=== PATIENT | female | born 1975 | race Caucasian/White ===

== ENCOUNTER 2016-12-09 21:43 | Emergency (ER) | payer SELFPAY | END 2016-12-10 00:08 | disposition home or self-care (01) | LOC: D.ER 21:43 | DX: J45.901 Unspecified asthma with (acute) exacerbation (principal); J18.9 Pneumonia, unspecified organism; R00.0 Tachycardia, unspecified; F17.200 Nicotine dependence, unspecified, uncomplicated ==

== ENCOUNTER 2018-01-01 06:17 | Emergency (ER) | payer SELFPAY ==
[2018-01-01 07:09] LABS: BASOPHILS 0.8 % (0-2); EOSINOPHILS 3.5 % (0-7); HEMATOCRIT 27.6 % (36.0-48.0); HEMOGLOBIN 8.1 g/dL (12-16); IMMATURE GRANULOCYTES 0.2 % (0-5); MCH 20.4 pg (26.0-34.0); MCHC 29.3 g/dL (31.0-37.0); MCV 69.5 fL (80.0-100.0); MEAN PLATELET VOLUME 8.6 fL (7.4-10.4); NEUTROPHILS 79.5 % (40-80); PLATELET COUNT 354 10x3/uL (130-400); RBC 3.97 10x6/uL (4.00-5.40); WBC 9.1 10x3/uL (4.8-10.8)
[2018-01-01 07:25] LABS: ALBUMIN 3.3 g/dL (3.4-5.0); ALKALINE PHOSPHATASE 66 U/L (46-116); ALT (SGPT) 19 U/L (10-68); CALC OSMOLALITY 278 mosm/kg (275-300); CALCIUM 8.3 mg/dL (8.5-10.1); CARBON DIOXIDE 22.2 mmol/L (21.0-32.0); CHLORIDE - SERUM 104 mmol/L (98-107); CREATININE - SERUM 0.7 mg/dL (0.6-1.3); GLUCOSE 90 mg/dL (74-106); POTASSIUM - SERUM 3.8 mmol/L (3.5-5.1); PROTEIN - SERUM 7.6 g/dL (6.4-8.2); SODIUM 140 mmol/L (136-145); UREA NITROGEN 13 mg/dL (7-18); eGFR NON AFRICAN AMERICAN > 90 mL/min (90-120)
[2018-01-01 07:29] LABS: TROPONIN-I < 0.017 ng/mL (0.000-0.060)
[2018-01-04 09:53] VITALS: BMI 23.0
== END 2018-01-01 09:24 | disposition home or self-care (01) ==
LOC: D.ER 06:17
PROVIDERS: Emergency Medicine
DX: J20.9 Acute bronchitis, unspecified (principal); R06.00 Dyspnea, unspecified; D50.9 Iron deficiency anemia, unspecified; F17.200 Nicotine dependence, unspecified, uncomplicated

== ENCOUNTER 2018-01-04 09:02 | Outpatient (CLI) | payer SELFPAY, MEDICAID ==
[~2018-01-04] VITALS: Ht 180.3 cm; Wt 75.0 kg
[2018-01-04 09:53] VITALS: BP 100/70; Ht 180.3 cm; Wt 75.0 kg
== END 2018-01-04 16:30 | disposition home or self-care (01) ==
LOC: D.OPS 09:02
DX: D50.9 Iron deficiency anemia, unspecified (principal)

== ENCOUNTER 2019-01-16 11:04 | Inpatient (IN) | payer MEDICAID ==
[~2019-01-16] VITALS: Ht 180.3 cm; Wt 100.5 kg
--- NOTE | ~2019-01-16 | OP ---
PATIENT NAME: MARY KAY YAP MEDICAL RECORD: [id number] :77 LOCATION:[id number] ADMISSION DATE:01/20/19 SURGEON: OZZIE BRAVO MD DATE OF OPERATION: 01/20/2019 PREOPERATIVE DIAGNOSES: 1. Menorrhagia. 2. Pelvic pain. 3. Anemia. POSTOPERATIVE DIAGNOSES: 1. Menorrhagia. 2. Pelvic pain. 3. Anemia. 4. Suspected adenomyosis. PROCEDURES: Supracervical hysterectomy, right salpingo-oophorectomy, and left distal salpingectomy. SURGEON: Ozzie Bravo ESTIMATED BLOOD LOSS: 400 cc. ANESTHESIA: General endotracheal. INTRAVENOUS FLUIDS: Per anesthesia record. SPECIMENS: Uterus with partial cervix, right fallopian tube and ovary, left fimbriated end to fallopian tube. COMPLICATIONS: None apparent. FINDINGS: 1. Soft friable uterine musculature consistent with adenomyosis. 2. Friable tissue consistent with endometriosis of the pelvis. 3. Grossly normal-appearing ovaries. 4. Left fallopian tube densely adherent to the left ovary. 5. Dense adhesions involving the bladder and the lower uterine segment/cervix. COMPLICATIONS: None apparent. PROCEDURE IN DETAIL: The patient was taken to the operating room, where general anesthesia was achieved without any difficulty. The patient was then prepped and draped in normal sterile fashion in the dorsal supine position. SCDs were on and functioning normally. A Love catheter had been placed and was draining freely. Following prep and drape, a Pfannenstiel skin incision was made and extended downward to the underlying subcutaneous fat to level of the fascia. Fascia was then excised in the midline with a knife and extended bilaterally using the Adkins scissors. Superior and inferior aspects of the fascial incision were grasped with Austyn clamps times 2, tented upwards, and sharply dissected from the underlying rectus muscle using the Adkins scissors and the Bovie cautery. Rectus muscles were then bluntly in the midline and the peritoneum was entered sharply at the superior aspect. The peritoneal incision was then stretched. The uterus was identified and delivered upwards through the incision. A single lap sponge was used to retract the bowel superiorly and a OPERATIVE REPORT [id number] MARY KAY YAP malleable retractor was placed into the incision. The uterus was then tented upwards to the incision and grasped on its cornea with Austyn clamps. Attention was then turned to the bilateral round ligaments. These were then grasped with Austyn clamps times 2. These were cut and suture ligated using #0 Vicryl and the anterior leaf of the broad ligament was then excised downwards across to approximately the three-quarter kun to the midline, stopped only by dense adhesions of the anterior peritoneum to the lower uterine segment/cervix. This bladder flap was developed laterally until uterine vessels were skeletonized. A defect was then made in the posterior leaf of the broad ligament bilaterally and straight Otto clamps were placed across the uteroovarian ligaments and the proximal fallopian tubes times 2. These were clamped and cut, first free tied with #0 Vicryl and then suture ligated. It was noted to be hemostatic on the left. On the right, an area of the infundibulopelvic ligament was found to be friable and bleeding. Attempt was made to oversew it; however, the bleeding persisted. The infundibulopelvic ligament was then skeletonized and grasped very close to the ovary with a curved Otto clamp. The ovary and fallopian tube were then removed. The infundibulopelvic ligament was then free tied using a #0 Vicryl suture and then suture ligated medially with good hemostasis noted. The uterine vessels were then fully skeletonized and ligated using a curved Otto clamp. The uterine vessels were then cut and suture ligated using #0 Vicryl suture. The cardinal ligaments were then grasped with straight Otto clamps, cut, and suture ligated with #0 Vicryl. Attention was then turned to the bladder. Difficulty was had with dissection of the bladder from the cervix. It was felt at this time that continued dissection was likely going to result in a bladder injury. As the patient's last Pap smear was normal, decision was made at that time to proceed with a supracervical hysterectomy. The uterus was then amputated at the level of the cervix above the straight Otto clamps. These clamps were then suture ligated with #0 Vicryl. The endocervical canal was then fulgurated using the Bovie cautery and the cervical stump was oversewn using #0 Vicryl in an interrupted [id number] fashion. Good hemostasis was noted from the cervical stump. Attention was then turned to the left adnexa, where the distal fimbriated end of the tube was tented upwards from the ovary and clamped right on the ovary with a curved Otto clamp. It was felt at this time that further dissection of the tube, which was gently adherent to the ovary, would subject the patient to the risk of bilateral oophorectomy and need for hormone replacement. Just the fimbriated end of the fallopian tube was then excised as it was free and this pedicle was ligated using #0 Vicryl suture times 2. Good hemostasis was noted from all pedicles. FloSeal was placed on all the surgical sites. Counts were correct times 2. The sponge was removed from the abdomen. The fascia was repaired with #0 loop PDS times 1 and the skin was repaired with kerline. The patient tolerated the procedure well. She was transferred to postanesthesia recovery stable without incident. TRANSINT:[id number] Voice Confirmation ID: [id number] DOCUMENT ID: [id number] OZZIE BRAVO MD CC: [id number] DICTATION DATE: 01/22/191758 METALWORKING SPECIALIST: 01/22/192019 DIS IN 01/22/19 [facility] [address] [place] [address]
[2019-01-18] MEDS ORDERED: EPIPEN 2-P0.3 MG/0.3 IM (13:53)
[2019-01-18] MEDS ORDERED: PROZAC20 MG PO (13:54)
[2019-01-18] MEDS ORDERED: ADIPEX-P37.5 M1 PO (13:54)
[2019-01-18] MEDS ORDERED: XOPENEX HFA15 GM INH (13:55)
[2019-01-18] MEDS ORDERED: SUDOGEST30 MG PO (13:56)
[2019-01-18] MEDS ORDERED: ALBUTEROL0.63 MG/3 INH (13:58)
[2019-01-18 14:46] LABS: BASOPHILS 1.2 % (0-2); EOSINOPHILS 6.6 % (0-7); HEMOGLOBIN 12.3 g/dL (12-16); IMMATURE GRANULOCYTES 0.2 % (0-5); LYMPHOCYTES 22.9 % (15-50); MCHC 33.2 g/dL (31.0-37.0); MCV 87.3 fL (80.0-100.0); MEAN PLATELET VOLUME 9.5 fL (7.4-10.4); MONOCYTES 7.9 % (2-11); NEUTROPHILS 61.2 % (40-80); PLATELET COUNT 278 10x3/uL (130-400); RBC 4.24 10x6/uL (4.00-5.40); RDW 22.6 % (11.5-14.5); WBC 5.9 10x3/uL (4.8-10.8)
[2019-01-18 14:53] LABS: APTT 26.1 SECONDS (22.8-39.4); INR 0.99 (0.85-1.17); PROTIME 12.6 SECONDS (11.6-15.0)
[2019-01-18 14:55] LABS: ANION GAP 15.1 mmol/L (8-16); CALCIUM 9.1 mg/dL (8.5-10.1); CARBON DIOXIDE 23.4 mmol/L (21.0-32.0); CREATININE - SERUM 0.9 mg/dL (0.6-1.3); POTASSIUM - SERUM 3.5 mmol/L (3.5-5.1)
[2019-01-20] VITALS (9 sets, daily range): BP systolic 111–127; BP diastolic 63–82; Ht 180.3 cm; Wt 100.5 kg
[2019-01-20 06:19] LABS: HCG URINE NEGATIVE (NEGATIVE)
--- NOTE | 2019-01-20 10:10 | NUR ---
SCOPE PATCH BEHIND RT EAR ON ADMIT TO RR
--- NOTE | 2019-01-20 10:38 | NUR ---
small cup of ice and small apple juice provided per request. Dr Bravo notified for post op orders.
--- NOTE | 2019-01-20 10:45 | NUR ---
received by bed from recovery room with bedside report from Marcelino Montalvo rn. Pt awakens easily when spoken to but is drowsy. rates pain at 0/10 at this time, large abdominal bandage to bikini area noted to be clean and dry, abd soft to touch. moore cath to bedside drain with 200ml clear blue tinted urine noted. scd's bilat per orders and connected to pump. iv to r forearm patent without signs of swelling and pt denies pain/tenderness at site, swab caps in use, LR to pump/infusing per orders. she denies nausea at this time and request apple juice to drink. Family allowed to room. Side rails up x 2 with call light in reach.
--- NOTE | 2019-01-20 11:50 | NUR ---
PT RATES PAIN AT 06/06, DILAUDID HUMAN RESOURCES BENEFITS ASSISTANT STARTED PER MD ORDERS, TORDAL ALSO GIVEN IVP AT THIS TIME. DEMONSTRATES CORRECT USE OF DILAUDID HUMAN RESOURCES BENEFITS ASSISTANT. 50ML CLEAR BLUE URINE NOTED TO COLLECTION CANISTER. SIDE RAILS UP X 2 WITH CALL LIGHT IN REACH AND FAMILY MEMBERS AT BEDSIDE.
--- NOTE | 2019-01-20 12:21 | NUR ---
pain reassessment, pt resting with eyes closed and resp even, no signs of distress. family remains at bedside. side rails up x 2.
--- NOTE | 2019-01-20 12:45 | NUR ---
CALLED TO ROOM, PT STATES THAT SHE FEELS LIKE SHE CAN NOT TAKE DEEP BREATH. HEAD OF BED RAISED AND PILLOWS ADJUSTED, DUE TO 02 SAT OF 92%, O2 VIA NC AT 2L/MIN STARTED. PT ASK ABOUT HER INHALER AND REQUEST DR ALCAZAR BE CALLED FOR ORDERS. PAGED AT THIS TIME.
--- NOTE | 2019-01-20 12:48 | NUR ---
REPORT TO DR ALCAZAR OF PT COMPLAINTS, CURRENT VITAL SIGNS AND 02%, REQUEST MADE FOR ORDER FOR PT TO RESUME LEVALBUTEROL INHALER BID. ORDER RECEIVED.
--- NOTE | 2019-01-20 13:15 | NUR ---
this rn to bedside to let pt and family know that inhaler/updraft had been ordered and resp notified. upon entering room pt is attempting to sit up in bed, having difficulty inhaling, pt wheezing and showing signs of panic/anxiety. She has support from family/friends at bedside who are able to talk her thru and calm her so that she is able to take slow shallow breaths. Non-rebreather mask is applied and turned up to 15l/min, pt remains focused on her friend at bedside and able to attempt and mimick her breathing but begins to panic when she is unable to take a deep breath. O2 sat at 88-90%.
--- NOTE | 2019-01-20 13:20 | NUR ---
RT CALLED WITH REPORT GIVEN OF CURRENT ASSESSMENT AND PT HX OF ASTHMA. REPORTED THAT ORDERS HAD BEEN PLACED FOR INHALER. REQUEST MADE THAT RT COME NOW TO ASSESS PATIENT.
--- NOTE | 2019-01-20 13:26 | NUR ---
NATHAN FROM RT AT BEDSIDE. UPON ENTERING ROOM HE ADJUST O2 LEVEL BY INCREASING IT GREATER THAN 15L/MIN, PT TAKES A DEEP BREATH IMMEDIATLY AFTER THIS IS DONE. INHALER PER RESP. REPORT GIVEN THAT PT ALSO DOES UPDRAFT AT HOME AT LEAST ONCE A DAY. HOME MED REC SHOWN TO RT AND ORDERS PLACED FOR UPDRAFT NOW. O2 88-90% AT THIS TIME, PT BREATH IS NOT SHORT AND SHALLOW AND SHE IS BEGINNING TO RELAX. HER HEART RATE AFTER TREATMENT IS 134-155 AND RESP IS AWARE OF THIS.
--- NOTE | 2019-01-20 13:40 | NUR ---
NON REBREATHER CHANGED TO HIGH FLOW NC PER RT AND VOLUME ADJUST ALSO PER RT. PT IS BREATHING MUCH EASIER ALTHOUGH STILL SHALLOW, NO LONGER HEARING WHEEZING. O2 95% AND PT ABLE TO HAVE BRIEF MOMENTS OF SLEEPING. FAMILY/FRIENDS REMAIN AT BEDSIDE. RESP THERAPY TO MANAGE INHALER/UPDRAFT TREATMENTS.
--- NOTE | 2019-01-20 14:00 | NUR ---
O2 97%, PT TALKING EASILY AT THIS TIME WITH FAMILY AT BEDSIDE. SMALL APPLE JUICE PER REQUEST, DENIES NAUSEA AND RATES PAIN AT 4/10 AT THIS TIME. SHE STATES SHE IS UNSURE ABOUT USING CAR RENTAL AGENT AT THIS TIME DUE TO FEAR OF HAVING ANOTHER PANIC ATTACK DURING SLEEP. ENCOURAGED HER TO TRY AND REST, LIGHTS DIMMED. SIDE RAILS UP X 2 WITH CALL LIGHT IN REACH AND FAMILY PRESENT.
--- NOTE | 2019-01-20 14:30 | NUR ---
PT RESTING AND WATCHING TV. RATES PAIN AT 5/10, O2 96%. DENIES NEEDS OR CONCERNS AT THIS TIME.
--- NOTE | 2019-01-20 15:38 | NUR ---
PROPAGATION MANAGER IN ROOM AND CAME TO DESK TO REPORT THAT PT C/O NOT BREATHING VERY WELL. WALKED IN ROOM AND NOTED VISITOR AT BEDSIDE WHO JUST PUSHED ELECTRIC SIGN WIRER CONTROLLER. PROVIDED EDUCATION THAT ONLY PATIENT SHOULD PUSH CONTROLLER FOR PAIN RELIEF TO PREVENT RESPIRATOR DEPRESSION. NOTED ELEVATED PULSE IN 120'S. PULSE OX 99% AT O2 100% VIA NASAL CANULA SET BY RESPIRATORY THERAPIST. RESP RATE 24, INSPIRATORY WHEEZING NOTED. BP 125/83 P 126. STAYED IN ROOM WITH PATIENT. INITIALLY CONFUSED TO WHY IN HOSPITAL BUT NOW LESS DROWSY, KNOWS WHY SHE IS HOSPITAL, ANSWERS QUESTIONS APPROPRIATELY, USED INCENTIVE SPIROMETER WITH NON PRODUCTIVE COUGH. HOB ELEVATED TO HIGH FOWLERS. SIDE RAILS UP X 2, CALL LIGHT IN REACH. VISITOR AT BEDSIDE.
[2019-01-20 15:42] LABS: BASOPHILS 0.2 % (0-2); EOSINOPHILS 0.1 % (0-7); HEMATOCRIT 37.8 % (36.0-48.0); HEMOGLOBIN 12.4 g/dL (12-16); IMMATURE GRANULOCYTES 0.2 % (0-5); LYMPHOCYTES 6.8 % (15-50); MCH 29.2 pg (26.0-34.0); MCHC 32.8 g/dL (31.0-37.0); MCV 89.2 fL (80.0-100.0); MEAN PLATELET VOLUME 9.4 fL (7.4-10.4); MONOCYTES 2.8 % (2-11); NEUTROPHILS 89.9 % (40-80); PLATELET COUNT 274 10x3/uL (130-400); RBC 4.24 10x6/uL (4.00-5.40); RDW 22.8 % (11.5-14.5); WBC 9.8 10x3/uL (4.8-10.8)
--- NOTE | 2019-01-20 16:00 | NUR ---
DR GREGG ON UNIT AND REPORT GIVEN OF PT HX, ASTHMA/PANIC ATTACK AFTER SURGERY AND OF TREATMENT PER RESP. ALSO REPORTED THAT PT FRIEND/FAMILY MEMBER HAD BEEN OBSERVED PRESSING STEEL BARREL REAMER BUTTON WHENEVER PT IS SLEEPING. NEW ORDERS RECIEVED TO D/C STEEL BARREL REAMER DUE TO THIS AND PT HX, WILL START PO PAIN MEDICATION, PLAN OF CARE GONE OVER WITH PT AND FAMILY. NO QUESTION SOR CONCERNS AT THIS ITME.
[2019-01-20 16:03] LABS: CALC OSMOLALITY 277 mosm/kg (275-300); CALCIUM 8.4 mg/dL (8.5-10.1); CARBON DIOXIDE 24.2 mmol/L (21.0-32.0); CHLORIDE - SERUM 106 mmol/L (98-107); CREATININE - SERUM 0.8 mg/dL (0.6-1.3); GLUCOSE 128 mg/dL (74-106); POTASSIUM - SERUM 4.5 mmol/L (3.5-5.1); SODIUM 139 mmol/L (136-145); UREA NITROGEN 8 mg/dL (7-18); eGFR NON AFRICAN AMERICAN 83 mL/min (90-120)
--- NOTE | 2019-01-20 16:30 | NUR ---
DILAUDID SPORTS ATHLETIC TRAINER DISCONTINUED. PLAN OF CARE GONE OVER WITH PT AND FAMILY AT BEDSIDE. SHE VOICES HER UNDERSTANDING TO ASK FOR PAIN MED WHEN NEEDED. O2 IS 97-100% VIA NC AT 100% PER RT. SHE IS LAUGHING ALONG WITH VISITORS. SIDE RAILS UP X 2 WITH CALL LIGHT IN REACH.
--- NOTE | 2019-01-20 18:16 | NUR ---
PAIN MED PER REQUEST FOR PAIN THAT SHE RATES AT 5/10, PUMP CLEARED WITH TOTAL OF 906 LR INFUSED AND 575 OUTPUT BY CASILLAS. PT TURNED TO HER RIGHT SIDE PER SELF AND GIVES SEVERAL COUGHS. O2 100% WITH NC IN PLACE. DENIES ANY FURTHER NEEDS AT THIS TIME. SIDE RAILS UP X 2 WITH CALL LIGHT IN REACH.
--- NOTE | 2019-01-20 19:13 | NUR ---
C/O PAIN 7/10 PERINEAL AND VAGINAL, SHARP ACHE, AND "THROBBING." TACHYPNEA NOTED WITH O2 SAT 86%. O2 NOTED TO BE ON SIDE OF FACE, REPOSITIONED AND ENCOURAGED TO TAKE SLOW DEEP BREATHS, WITH INCREASE OF O2 SAT TO 90'S. RESP PAGED AT 191 TO REQUEST SCHEDULED UPDRAFT, RETURN CALL REC'D FROM AMY WHO STATES THAT SHE WILL COME TO UNIT TO ADMIN ORDERED UPDRAFT. JASVIR ON UNIT AT 192.
--- NOTE | 2019-01-20 19:30 | NUR ---
SHIFT ASSESSMENT COMPLETED PER FLOWSHEET. STATES PAIN IS DECREASED TO 4-5/10 FOLLOWING RECEIVING TORADOL AND DILAUDID. VSS AT THIS TIME. EXPIRATORY WHEEZES NOTED THROUGHOUT ALL LUNG FEILDS. COUGHING AND DEEP BREATHING DONE WITH ENCOURAGEMENT. INCENTIVE SPIROMETER DONE WITH ENCOURAGEMENT TIMES 5 WITH RN AT BEDSIDE. EDUCATED ON IMPORTANCE OF PERFORMING TURN, COUGH, AND DEEP BREATHING AND USING INCENTIVE SPIROMETER TO PREVENT RESPIRATORY COMPLICATIONS, VERBALIZES UNDERSTANDING. 100 MLS BLUE TINGED URINE EMPTIED FROM CASILLAS. SCD'S ON BLE, EDUCATED ON PURPOSE OF SCD'S. DENIES PASSING FLATUS, NO VAGINAL D/C NOTED. BOWEL SOUNDS PRESENT AND HYPOACTIVE X4. DRSG TO LOWER ABD INTACT WITH NO DRAINAGE NOTED. REPOSITIONED FROM RIGHT SIDE TO BACK, EDUCATED ON SPLINTING WITH RETURN DEMONSTRATION. PLAN OF CARE DISCUSSED WITH PT AND FAMILY MEMBERS, VERBALIZES UNDERSTANDING AND DENIES QUESTIONS. BED IN LOW POSITION WITH UPPER SIDE RAILS RAISED X2. CALL LIGHT AND PHONE WITHIN REACH. LIGHTS OFF PER PT REQUEST. WILL CONTINUE TO MONITOR AND ASSIST PRN.
--- NOTE | 2019-01-20 20:49 | NUR ---
PT SNORING UPON RN ENTERING ROOM. FAMILY MEMBER NOTED TO HAVE HAND ON PT CHEST AND IS CONCERNED THAT "SHE SEEMS TO BE STRUGGLING TO BREATHE AND IT JUST STARTED." RESPIRATIONS 19, REGULAR RATE AND RYMTHM NOTED BY THIS RN. CONTINUES TO HAVE EXPIRATORY WHEEZES THROUGHOUT ALL LUNG FEILDS, NO CHANGE FROM PREVIOUS ASSESSMENT BY THIS RN. PT AROUSES TO VOICE, DENIES DIFFICULTY BREATHING. REFUSES TO TURN AT THIS TIME. INCENTIVE SPIROMETER USED X6 WITH RN. COUGH AND DEEP BREATHING DONE WITH ENCOURAGEMENT, WEAK EFFORT NOTED. FAMILY MEMBER QUESTIONED RN REGARDING NEXT PAIN MEDICATION, REINFORCED TEACHING THAT PAIN MEDICATION WAS PRN, MEANING SHE HAD TO ASK FOR IT, IT IS NOT SCHEDULED. EXPLAINED THAT PT HAS TO ASK FOR MEDICATIONS AND THAT RESPIRATORY AND SEDATION STATUS HAS TO BE ASSESSED PRIOR TO PT RECEIVING NARCOTICS, VERBALIZE UNDERSTANDING. TIMES THAT PT CAN RECEIVE PAIN MEDICATIONS DISCUSSED WITH PT AND FAMILY MEMBERS AND PLACED ON WHITE BOARD. BED IN LOW POSITION WITH UPPER SIDE RAILS RAISED X2. CALL LIGHT AND PHONE WITHIN REACH. WILL CONTINUE TO MONITOR AND ASSIST PRN.
--- NOTE | 2019-01-20 21:57 | NUR ---
FAMILY MEMBER CONCERNS ABOUT PT. C/O ITCHING AROUND TAPE ON ABD. NO EVIDENCE OF RASH AROUND INCISION. PT. SCRATCHING NOSE AND RUBBING ABD. ETC. INFORMED PT. THAT MORE LIKELY MED RELATED. PT. USED INHALER X1. PT. WITH SLURRED SPEECH. Brenda LOZADA RN RETURNS TO ROOM AND ASSUMES CARE OF PT.
--- NOTE | 2019-01-20 21:58 | NUR ---
Jesus PRITCHETT RN AT BEDSIDE. REPORTS THAT VISITOR CAME TO DESK AND REPORTED THAT PT WAS C/O ITCHING AROUND INCISION. NO EVIDENCE OF RASH NOTED. PT REPORTS THAT ITCHING IS GENERALIZED. BOTH THIS RN AND Jesus PRITCHETT RN EXPLAINED THAT ITCHING CAN BE SIDE EFFECT FROM PAIN MEDICATIONS. PT AROUSES TO VOICE, BUT IS GROGGY WITH SLURRED SPEECH AND FALLS ASLEEP MID SENTENCE. VISITOR REQUESTING BENADRYL FOR ITCHING, EDUCATED THAT NO ORDER WAS ON CHART BUT I WOULD CONTACT MD AND NOTIFY OF ASSESSMENT FINDINGS. VERBALIZE UNDERSTANDING. PT REPOSITIONED FROM BACK TO LEFT SIDE WITH PILLOWS PLACED BEHIND BACK AND BETWEEN KNEES FOR COMFORT AND SUPPORT. COUGH AND DEEP BREATHING DONE WITH GOOD EFFORT, REQUIRED ENCOURAGEMENT. INCENTIVE SPIROMETER USED TIMES 6 WITH RN. SCD'S REMAIN ON. BED IN LOW POSITION WITH UPPER SIDE RAILS RAISED X2. CALL LIGHT AND PHONE WITHIN REACH. WILL CONTINUE TO MONITOR AND ASSIST PRN.
--- NOTE | 2019-01-20 22:13 | NUR ---
REPORTED C/O ITCHING AND ASSESSMENT FINDINGS TO DR. GREGG. ORDERS REC'D. DISCUSSED CONCERN REGARDING FAMILY MEMBER/VISITOR AT BEDSIDE THAT CONTINUED TO STIMULATE PT EVEN WHEN SHE WAS TRYING TO REST WELL ASKING OF PAIN MEDICATION FOR PT. DR. GREGG IN AGREEMENT WITH STAFF THAT ONLY ONE PERSON MAY STAY OVER NIGHT IN ROOM WITH PT, SECURITY MAYBE NOTIFIED IF NEEDED .
--- NOTE | 2019-01-20 22:45 | NUR ---
O2 SAT 84-85%, RN TO BEDSIDE. PT SCRATCHING AND O2 UNDER CHIN. NC REPLACED IN NOSE, ENCOURAGED TO TAKE DEEP BREATHS WITH IMMEDIATE INCREASED IN SAT TO 94%. DENIES DIFFICULTY BREATHING. RESP REGULAR AND UNLABORED. BED IN LOW POSITION WITH UPPER SIDE RAILS RAISED X2. CALL LIGHT AND PHONE WITHIN REACH. WILL CONTINUE TO MONITOR AND ASSIST PRN.
--- NOTE | 2019-01-20 23:11 | NUR ---
O2 SAT 83%, RN TO BEDSIDE. PT WATCHING TV AND SCRATCHING NOSE. PULSE OX HALF OFF OF FINGER, NC UNDER CHIN. O2 PLACED BACK IN PT NOSE, PULSE OX REAPPLIED TO FINGER WITH IMMEDIATE RETURN OF O2 SAT TO 94%. RESP 18, REGULAR AND UNLABORED, EXPIRATORY WHEEZES NOTED THROUGHOUT ALL LUNG FEILDS, NO CHANGE FROM PREVIOUS ASSESSMENTS PER THIS RN. SPRITE PROVIDED PER PT REQUEST. DENIES ADDITIONAL NEEDS.
--- NOTE | 2019-01-20 23:17 | NUR ---
VSS. 175 MLS BLUE TINGED URINE EMPTIED FROM CASILLAS. PT CONVERSING WITH RN. PAIN 5/10, SHARP ACHE. DENIES NEED FOR INTERVENTION AT THIS TIME. ICE PACK PLACED PER ORDER AND PT REQUEST. REPOSITIONING SELF IN BED TO BACK. DENIES NEEDS. BED IN LOW POSITION WITH UPPER SIDE RAILS RAISED X2. CALL LIGHT AND PHONE WITHIN REACH. WILL CONTINUE TO MONITOR AND ASSIST PRN.
--- NOTE | 2019-01-20 23:30 | NUR ---
O2 SAT READING 84% WITH PULSE OF 29, RN TO BEDSIDE. PULSE OX TURNED SIDE WAYS ON PT FINGER. ADJUSTED WITH O2 SAT UP TO 94%. REQUEST BREATHING TREATMENT, RT AMY NOTIFIED AND WILL COME TO UNIT TO ADMINISTER PER ORDER.
--- NOTE | 2019-01-20 23:41 | NUR ---
YANELIS, RT TO BEDSIDE.
--- NOTE | 2019-01-21 00:34 | NUR ---
C/O ABD, INCISIONAL, AND VAGINAL PAIN /. CURRENTLY WATCHING TV AND LOOKING AT PHONE. REQUESTS NORCO, GIVEN PER ORDER. REVIEWED PLAN OF CARE. PT CONTINUES TO C/O ITCHING, REPORTS THAT IT HAS IMPROVED BUT IS STILL "KEEPING ME FROM SLEEPING." WILL ADMINISTER ORDERED BENADRYL PER ORDER/PT REQUEST. REPOSITIONED SELF FROM LEFT SIDE TO RIGHT SIDE. PILLOWS PLACED BEHIND BACK FOR COMFORT AND SUPPORT. COUGH AND DEEP BREATHING DONE WITH ENCOURAGEMENT, GOOD EFFORT NOTED. INCENTIVE SPIROMETER USED X7 WITH RN AT BEDSIDE. SCD'S REMAIN ON BLE. DENIES ADDITIONAL NEEDS. BED IN LOW POSITION WITH UPPER SIDE RAILS RAISED X2. CALL LIGHT AND PHONE WITHIN REACH. WILL CONTINUE TO MONITOR AND ASSIST PRN.
--- NOTE | 2019-01-21 00:48 | NUR ---
25 MG IV BENADRYL GIVEN SLOW IVP PER ORDER. NC ON PT CHIN UPON ENTRY TO ROOM, PT STATES THAT HER NOSE IS SORE AND SHE JUST WANTED O2 OFF FOR "A MINUTE." O2 SAT 99%. RESP REGULAR AND UNLABORED, NO S/S DISTRESS, WILL CONTINUE TO MONITOR.
--- NOTE | 2019-01-21 01:19 | NUR ---
O2 SAT 81%. RN TO BEDSIDE, PULSE OX SIDE WAYS ON FINGER, NC LAYING ON BED. PULSE OX READJUSTED WITH WITH READING OF 96%. PAIN REASSESSMENT COMPLETED, 11/06. DENIES NEEDS AT THIS TIME. WILL CONTINUE TO MONITOR.
--- NOTE | 2019-01-21 02:07 | NUR ---
RN TO BEDSIDE. NC AND PULSE OX LAYING ON BED. PT RESTING WITH EYES CLOSED, AROUSES TO VOICE. O2 SAT 86% ON RA. HIGH FLOW NC REAPPLIED WITH 7L O2 WITH IMMEDIATE INCREASE IN O2 SAT TO 99%. O2 DECREASED TO 4 L. C/O PAIN /10 ABD SORENESS, INCISIONAL BURNING/STINGING/THROBBING. REQUEST TORADOL, GIVEN PER ORDER AND PT REQUEST. NEW BAG LR HUNG. ENCOURAGED PO FLUID INTAKE. PT REPORTS THAT SHE ISN'T ITCHING AT THIS TIME. INCENTIVE SPIROMETER DONE X 6 WITH ENCOURAGEMENT. COUGH AND DEEP BREATHING DONE WITH GOOD EFFORT, REFUSES REPOSITIONING AT THIS TIME. BED IN LOW POSITION WITH UPPER SIDE RAILS RAISED X2. CALL LIGHT AND PHONE WITHIN REACH. WILL CONTINUE TO MONITOR AND ASSIST PRN.
--- NOTE | 2019-01-21 02:28 | NUR ---
PULSE OX OFF OF FINGER. NC ON PT FOREHEAD. PT REPORTS THAT SHE FEELS SHE IS HAVING TROUBLE BREATHING, NC REPLACED, O2 SAT 95%. INHALER USED BY PT X2. RESPIRATIONS REGULAR AND UNLABORED. REINFORCED IMPORTANCE OF KEEP PULSE OX MONITOR ON AND NC IN NOSE, VERBALIZES UNDERSTANDING. RN REMAINS AT BEDSIDE.
--- NOTE | 2019-01-21 02:32 | NUR ---
RN REMAINS AT BEDSIDE, PT REPORTS THAT SHE IS NO LONGER HAVING DIFFICULTY BREATHING FOLLOWING USE OF INHALER. ASSISTED TO REPOSITION TO BACK PER PT REQUEST. DENIES ADDITIONAL NEEDS. PT NOTED TO HAVE SLURRED SPEECH AT TIMES DURING RN BEING AT BEDSIDE. WILL CONTINUE TO MONITOR AND ASSIST PRN.
--- NOTE | 2019-01-21 02:51 | NUR ---
O2 SAT 84%. NC ON PT FOREHEAD, REPLACED BACK TO NOSE WITH RETURN OF SAT TO LOW TO MID 90'S. PT AROUSES TO VOICE TO AND TOUCH. PAIN REASSESSMENT COMPLETED, 12/04. BED IN LOW POSITION WITH UPPER SIDE RAILS RAISED X2. CALL LIGHT AND PHONE WITHIN REACH. WILL CONTINUE TO MONITOR.
[2019-01-21 03:42] VITALS: BP 97/54
--- NOTE | 2019-01-21 03:42 | NUR ---
VSS. NC ON PT FOREHEAD, O2 84%. NC PLACED BACK IN NOSE. PT REQUESTING IV PAIN MEDICATIONS, HOWEVER SPEECH IS SLURRED AND PT CONTINUALLY FALLING ASLEEP MID SENTENCE. EXPLAINED TO PT THAT RN FEELS SHE IS STILL TO SEDATED AT THIS POINT TO RECEIVE IV PAIN MEDS, VERBALIZES UNDERSTANDING. CONTINUES TO HAVE EXPIRATORY WHEEZES THROUGHOUT ALL LUNG FEILDS, RUL AND PARI WITH FINE CRACKLES THAT CLEAR WITH COUGH. INCENTIVE SPIROMETER USED X10 WITH RN. COUGH AND DEEP BREATHING DONE WITH ENCOURAGEMENT, GOOD EFFORT NOTED. ENCOURAGED TO CONTINUE TO MOVE AND REPOSITION IN BED. 300 MLS BLUE TINGED URINE EMPTIED FROM CASILLAS, RESEARCH GEOLOGIST BLUE THAN PREVIOUS TIME EMPTIED. SCD'S REMAIN ON BLE. BED IN LOW POSITION WITH UPPER SIDE RAILS RAISED X2. CALL LIGHT AND PHONE WITHIN REACH. WILL CONTINUE TO MONITOR AND ASSIST PRN.
--- NOTE | 2019-01-21 03:58 | NUR ---
AMY, RT AT BEDSIDE.
--- NOTE | 2019-01-21 05:14 | NUR ---
RESTING IN SEMI-FOWLERS POSITION WITH EYES CLOSED. NC LAYING ON CHEST, O2 SAT 94-96%, RESPIRATIONS REGULAR AND UNLABORED, NO S/S OF DISTRESS NOTED. SCD'S ON BLE. BED IN LOW POSITION WITH UPPER SIDE RAILS RAISED X2. CALL LIGHT AND PHONE WTIHIN REACH. WILL CONTINUE TO MONITOR AND ASSIST PRN.
--- NOTE | 2019-01-21 06:03 | NUR ---
C/O PAIN 8/10, CONSTANT HEADACHE, ABD AND INCISIONAL BURNING, STINGING, AND THROBBING. REQUESTS NORCO AT THIS TIME. GIVEN PER ORDER AND REQUEST. O2 LAYING ON PT CHEST, O2 SAT 95% ON RA. REQUEST TO LEAVE O2 OFF AT THIS TIME TO ASSESS O2 SAT ON RA. 200 MLS BLUE TINGED URINE EMPTIED FROM CASILLAS. WILL CONTINUE TO MONITOR AND ASSESS PRN.
[2019-01-21 06:11] LABS: BASOPHILS 0.3 % (0-2); EOSINOPHILS 1.9 % (0-7); HEMATOCRIT 33.6 % (36.0-48.0); HEMOGLOBIN 10.6 g/dL (12-16); IMMATURE GRANULOCYTES 0.2 % (0-5); LYMPHOCYTES 13.3 % (15-50); MCH 28.5 pg (26.0-34.0); MCHC 31.5 g/dL (31.0-37.0); MCV 90.3 fL (80.0-100.0); MEAN PLATELET VOLUME 9.3 fL (7.4-10.4); MONOCYTES 11.9 % (2-11); NEUTROPHILS 72.4 % (40-80); PLATELET COUNT 220 10x3/uL (130-400); RBC 3.72 10x6/uL (4.00-5.40); RDW 22.7 % (11.5-14.5); WBC 8.6 10x3/uL (4.8-10.8)
--- NOTE | 2019-01-21 06:20 | NUR ---
RT AT BEDSIDE, CALLS VIA CL C/O NAUSEA. ZOFRAN GIVEN PER ORDER AND PT REQUEST. EMESIS BAG PROVIDED. ASSISTED PT TO BACK FROM LEFT SIDE AND INTO HIGH FOWLERS POSITION. PT COUGHING AT THIS TIME. DENIES NEEDS. WILL CONTINUE TO MONITOR AND ASSIST PRN.
[2019-01-21 06:46] LABS: CALC OSMOLALITY 275 mosm/kg (275-300); CARBON DIOXIDE 25.8 mmol/L (21.0-32.0); CHLORIDE - SERUM 105 mmol/L (98-107); CREATININE - SERUM 0.7 mg/dL (0.6-1.3); GLUCOSE 102 mg/dL (74-106); SODIUM 139 mmol/L (136-145); UREA NITROGEN 6 mg/dL (7-18); eGFR NON AFRICAN AMERICAN > 90 mL/min (90-120)
[2019-01-21 06:47] LABS: POTASSIUM - SERUM 3.4 mmol/L (3.5-5.1)
[2019-01-21 07:20] VITALS: BP 105/58
--- NOTE | 2019-01-21 07:20 | NUR ---
ASSUMED CARE OF THIS PATIENT. SLEEPING TILTED TO RIGHT SIDE WITH HOB AT 45 DEGREES, AROUSES SLOWLY AND ANSWERS QUESTIONS WITH EYES CLOSED. SAYS HER PAIN IS 7-9/10 WHILE SLEEPING "SHARP". FALLS BACK TO SLEEP AFTER ANSWERING QUESTIONS. VS OBTAINED. IV INFUSING AT 125 ML/HR PER ALARIS PUMP INTO RIGHT WRIST, NO INFILTRATION SIGNS NOTED. CASILLAS DRAINING GREEN TINGED URINE. SCD'S IN PLACE BILATERALLY AND PUMP WORKING. LUNGS CLEAR BILATERALLY WITH OCCASIONAL EXPIRATORY WHEEZING NOTED. O2 ON AT 4 LITERS PER NC, PT PERIODICALLY REMOVED CANNULA, REMINDED TO KEEP IN PLACE. SIDE RAILS UP X 2, CALL LIGHT IN REACH.
--- NOTE | 2019-01-21 08:48 | NUR ---
DROWSY BUT AROUSES EASILY. C/O 07/06 FRONTAL TOTH BETWEEN EYES AT BRIDGE OF NOSE. THROBBING. TORADOL 30 MG GIVEN IVP FOR RELIEF. SAYS INCISIONAL PAIN 04/05. ICE PACK IN PLACE. REPOSITIONED FROM RIGHT SIDE TO LEFT SIDE WITH MINIMAL ASSISTANCE. PILLOWS POSITIONED FOR COMFORT. INCENTIVE SPIROMETER USED PRIOR TO TURNING. CASILLAS DRAINING. IV PATENT. SIDE RAILS UP X2, CALL LIGHT IN REACH. O2 DECREASED TO 2 LITERS PULSE OX AT 95%.
--- NOTE | 2019-01-21 09:10 | NUR ---
DR GREGG IN ROOM WITH PATIENT. ALERT AND ORIENTED. MD REMOVED LOW ABDOMINAL DRESSING. SLIGHT ERRYTHEMA NOTED RIGHT EDGE OF DRESSING POSSIBLY SECONDARY TO THE DRESSING ADHERENCE TO SKIN. [place] INTACT WITHOUT ERRYTHEMA OR DRAINAGE. PER MD PLANS TO DC IV FLUIDS, DC CASILLAS, SHOWER, AMBULATE, REGULAR DIET AND PO PAIN MEDS. PT SAYS SHE PASSED GAS JUST BEFORE HE ARRIVED. VISITOR IN ROOM X 1. MD INFORMED THAT PATIENT O2 WAS DECREASED TO 2 L THIS AM. ORDERS RECEIVED TO DECREASE TO 1 ML AND THEN WEAN PATIENT OFF O2.
--- NOTE | 2019-01-21 09:45 | NUR ---
REMOVED CASILLAS CATHETER, 200 ML OF BLUE TINTED URINE NOTED AND DISPOSED OF. LEFT FOREARM PIV SALINE LOCKED, FLUSHES WELL, NO REDNESS/SWELLING NOTED. PT SITTING UP IN BED VISITING WITH FAMILY MEMBERS, REPORTS SHE FEELS MUCH BETTER TODAY. PT DENIES ANY NEEDS AT THIS TIME.
--- NOTE | 2019-01-21 10:17 | NUR ---
ALERT AND ORIENTED. HAS O2 NC OUT OF NOSE. PULSE OX 96%. O2 DC'S AT THIS TIME. DENIES TOTH. DESIRES TO SIT UP ON EDGE OF BED. MINIMAL ASSISTANCE NEEDED. CURRENTLY SITTING ON BED RECEIVING RESPIRATORY TREATMENT FROM RESP TECH. CALL LIGHT IN REACH. INSTRUCTED NOT TO STAND UP WITHOUT ASSISTANCE. VERBALIZED UNDERSTANDING. FAMILY WENT TO GET PT FOOD "MASHED POTATOES". ICE CREAM GIVEN PER PT REQUEST.
--- NOTE | 2019-01-21 10:37 | NUR ---
RETURNED TO SEMI FOWLERS POSITION. DESIRES TO LEAVE SCD'S OFF FOR NOW. SAYS SHE WILL MOVE HER LEGS AROUND. 1-11/06 INCISIONAL ACHING, DENIES TOTH, DENIES NEEDING ANYTHING FOR PAIN AT THIS TIME. INSTRUCTED TO LET RN KNOW IF NEEDING ANYTHING FOR PAIN. DESIRES TO REST AT THIS TIME. ALERT AND ORIENTED. LOOKS MUCH BETTER. STATES "I DON'T LIKE FEELING SICK."
--- NOTE | 2019-01-21 11:25 | NUR ---
UP IN SHOWER WITH THE HELP OF FAMILY. EXPLAINED TO PATIENT IMPORTANCE OF CALL NURSE FOR ASSISTANCE TO AVOID FALLS INCASE OF DIZZINESS AND OR UNSTABLE GATE. VERBALIZED UNDERSTANDING. DENIES FEELING DIZZINESS. EXPLAINED HOW TO CLEAN INCISION SITE. COMPLETE LINEN CHANGE DONE.
--- NOTE | 2019-01-21 11:40 | NUR ---
FINISHED SHOWER. FAMILY HELPED PT DRESS, THIS RN IN ROOM AND OBSERVE PATIENT AMBULATION BACK TO BED. DENIES NEEDING ANYTHING FOR PAIN. "I FEEL GOOD". ATE FOOD FROM [facility]. HAS NOT VOIDED SINCE CASILLAS CATH WAS DC'D. ENCOURAGED PO HYDRATION. SCANT BLOODY DC NOTED AT INCISION SITE, KATHERINE-PAD PLACED. EXPLAINED TO PATIENT IMPORTANCE OF CHANGING FREQUENTLY. VISITORS IN ROOM. SIDE RAILS UP X 2, CALL LIGHT IN REACH. WILL AMBULATE IN DANIEL WHEN PT READY.
--- NOTE | 2019-01-21 12:15 | NUR ---
AMBULATED IN DANIEL HOLDING ON TO RAILING. SLIGHTLY SHAKY BUT STATES SHE IS LIKE THAT EVEN BEFORE HOSPITALIZATION. WALKED TO END OF DANIEL AND BACK TO ROOM. TOLERATED WELL.
[2019-01-21 12:34] VITALS: BP 112/67
--- NOTE | 2019-01-21 12:37 | NUR ---
RETURNED TO COUCH FROM BATHROOM. UNABLE TO VOID AT THIS TIME. REQUESTED PAIN MEDICATION FOR 5/10 INTERMITTENT "STABBING" PAIN. NORCO 10 MG GIVEN PO. REGULAR DIET SERVED. VISITORS X 2 IN ROOM ASSISTING PATIENT. DENIES NEEDING ANYTHING AT THIS TIME. VS OBTAINED.
--- NOTE | 2019-01-21 13:11 | NUR ---
FEELING DROWSY, ASSISTED BACK TO BED. ENCOURAGED NAP AT THIS TIME. SAYS HER PAIN IS ABOUT 5-6 "I'M OK THOUGH". SIDE RAILS UP X 2, CALL LIGHT IN REACH. LIGHTS TURNED ON LOW. SCD'S BACK ON BILATERALLY, PUMP ON AND WORKING. INSTRUCTED PATIENT TO GET UP WITH ASSISTANCE ONLY. TO CALL RN WHEN NEEDING TO GET UP. VERBALIZED UNDERSTANDING.
--- NOTE | 2019-01-21 14:15 | NUR ---
SLEEPING ON RIGHT SIDE. RESPIRATIONS EVEN AT 20. COLOR PINK. SIDE RAILS UP X 2, CALL LIGHT IN REACH. NO CURRENT VISITORS.
--- NOTE | 2019-01-21 14:50 | NUR ---
RESPIRATORY COMPLETED TREATMENT. PT AROUSED FROM SLEEP EASILY. FAMILY SAYS SHE JUST FELL BACK TO SLEEP, AROUSED PT TO GIVE SCHEDULE TORADOL. PT SAYS SHE HAS 6/10 ACHING INCISIONAL PAIN AND C/O HEADACHE "LIKE IT WAS BEFORE". SAYS SHE STARTED FEELING A LITTLE BIT PRIOR TO GETTING IN BED BUT NOW FEELS "FULL BLOWN". SAYS SHE HAS A HX OF TOTH'S AT HOME AND TAKES LOTS OF MOTRIN. IV TORADOL RELIEVED TOTH EARLIER THIS AM. INSTRUCTED PT THAT SHE IS RECEIVING PO TORADOL NOW. VERBALIZED UNDERSTANDING. WILL REASSESS WITHIN THE HOUR AND CHECK VOIDING STATUS AT THAT TIME. SIDERAILS UP X 2, CALL LIGHT IN REACH. VISITORS X 3 IN ROOM. LIGHTS ON LOW.
--- NOTE | 2019-01-21 15:05 | NUR ---
DR GREGG NOTIFIED OF PT C/O TOTH FOLLOWING NORCO ADMINISTRATION THIS AM AND THIS AFTERNOON. LET MD KNOW THAT TORADOL HELPED THIS MORNING AND WAS GIVEN THIS AFTERNOON SCHEDULED. PLAN TO REASSESS PAIN AND SEE IF TORADOL Q 6 HRS WILL COVER INCISIONAL PAIN AND RELIEVE TOTH. MD CONCURRED WITH PLAN. NO NEW ORDERS AT PRESENT.
--- NOTE | 2019-01-21 15:22 | NUR ---
C/0 HEADACHE AND NAUSEA, DRY HEAVES WITHOUT EMESIS AT THIS TIME. COOL WASHCOTH TO BACK OF NECK. ZOFRAN 4 MG GIVEN IVP. SALINE LOCK FLUSHED BEFORE ZOFRAN, IV PATENT. SALINE LOCK FLUSED AFTER ZOFRAN. HOB ELEVATED. SIDERAILS X 2, CALL LIGHT PLACED IN REACH. VISITORS IN ROOM.
--- NOTE | 2019-01-21 15:36 | NUR ---
SAYS SHE IS STARTING TO FEEL BETTER. TOTH IMPROVED NOW 03/06 VS 07/06 EARLIER. INCISIONAL PAIN 6/10 "OCCASIONAL SHARP PAIN." DENIES NEEDING TO VOID. BLADDER NON-DISTENDED. CLEAN KATHERINE-PAD PLACED OVER LOW INCISION SITE. WILL REASSESS NEED TO VOID IN 30 MINS OR WHEN PT FEELING BETTER.
--- NOTE | 2019-01-21 16:02 | NUR ---
REQUESTED ICE CHIPS FOR DRY MOUTH. DENIES NAUSEA. DENIES TOTH 0/10 NOW. SAYS SHE IS FEELING BETTER.
--- NOTE | 2019-01-21 16:20 | NUR ---
UP TO BATHROOM. VOIDED 200 ML LIGHT GREEN URINE. AMBULATED IN DANIEL PAST NURSES STATION AND BACK TO ROOM. TOLERATED WELL. HAD EPISODE OF NAUSEA PRIOR TO WALKING BUT DENIES NOW. DENIES TOTH. INCISIONAL PAIN 5/10 BUT SAYS SHE IS OK. RETURNED TO BED AFTER BRUSHING TEETH. VISITORS WENT TO GET DINNER. REMINDED PATIENT NOT TO GET UP WITHOUT ASSISTANCE. VERBALIZED UNDERSTANDING. CALL LIGHT IN REACH. SIDERAILS UP X 2.
[2019-01-21 16:26] VITALS: BP 103/69
--- NOTE | 2019-01-21 16:30 | NUR ---
SITTING UP IN BED WATCHING TV. INCENTIVE SPIROMETER USED X 3. ENCOURAGED TO USE HOURLY AND TO USE AT HOME AFTER DISCHARGE. VERBALIZED UNDERSTANDING.
--- NOTE | 2019-01-21 17:27 | NUR ---
PT C/O ONSET OF FRONTAL TOTH 07/06 [address]TA[address] GREGG TO LET HIM KNOW THAT TOTH AND NAUSEA RESOLVED EARLIER BUT HAS RETURNED. REVIEWED MEDICATION ADMINISTRATION INCLUDING LAST DOSE OF NORCO, TORADOL AND ZOFRAN. ORDERS RECEIVED. HANDLE BENDER NOTIFIED OF NEED FOR MEDICATION.
--- NOTE | 2019-01-21 17:49 | NUR ---
HAVING DRY HEAVES WITH SCANT EMESIS NOTED, SITE SURVEYOR CURRENTLY OBTAINING PAIN MEDICATION FROM PHARMACY.
--- NOTE | 2019-01-21 18:55 | NUR ---
STILL WAITING ON BALLISTIC TECHNICIAN TO BRING MED. LAYING ON RIGHT SIDE WITH EYES CLOSED. STILL C/O FRONTAL TOTH BETWEEN EYES, + SENSITIVITY TO LIGHT. NAUSEA. NO CURRENT EMESIS. LIGHTS ON LOW. VS OBTAINED. NOTED PULSE OX 90-93 WHEN DOZING OFF BUT INCREASES TO 94-96 WHEN AROUSED AND TALKING. O2 NC PLACED AND O2 STARTED AT 2 LITERS. PULSE OX LEFT IN PLACE. SPOUSE IN ROOM. SIDE RAILS UP X 2, CALL LIGHT IN REACH.
--- NOTE | 2019-01-21 19:00 | NUR ---
REPORT GIVEN TO PM SHIFT. BINDER AND WRAPPER PACKER CONTACTED TO SEE IF SHE WILL BE BRING PT MED. SAYS SHE WILL BRING ULISES.
--- NOTE | 2019-01-21 20:10 | NUR ---
asst pt to bathroom. pt voided 400ml of blue urine with small clot in urine. tolerated well.
[2019-01-21 20:15] VITALS: BP 117/71
--- NOTE | 2019-01-21 20:15 | NUR ---
MAXALT GIVEN PER ORDER. PT EDUCATED ON MEDICATION USE, FREQUENCY, AND SIDE EFFECTS. VERBALIZES UNDERSTANDING AND DENIES QUESTIONS. VSS. WILL CONTINUE TO MONITOR AND ASSIST PRN.
--- NOTE | 2019-01-21 21:00 | NUR ---
asst to bathroom and back to bed. pt voided 400ml or urine blue in color. pt ret to bed with hob sl elevated. tolerated well.
--- NOTE | 2019-01-21 21:30 | NUR ---
SHIFT ASSESSMENT COMPLETED PER FLOWSHEET. PAIN 5/10 INCISIONAL BURNING AND STINGING AND ABD "SORENESS." REPORTS IMPROVEMENT IN PAIN SINCE RECEIVING TORADOL. REPORTS THAT SHE NO LONGER HAS A HEADACHE. EXPIRATORY WHEEZES PRESENT THROUGHOUT ALL LUNG HOGAN, IMPROVEMENT NOTED FROM WHEN THIS RN PREVIOUSLY CARED FOR THIS PT. PT REPORTS PRODUCTIVE COUGH WITH CLEAR SPUTUM. ENCOURAGED PT TO CONTINUE TO USE INCENTIVE SPIROMETER, AMBULATE, TURN, COUGH, AND DEEP BREATH, VERBALIZES UNDERSTANDING. REPORTS THAT SHE IS VOIDING WITHOUT DIFFICULTY AND PASSING FLATUS. LOW TRANSVERSE INCISION NOTED, WELL APPROXIMATED WITH [place]OOK[place] INTACT, NO DRAINAGE NOTED. INSTRUCTED ON INCISIONAL CARE, PERIPAD PLACED OVER INCISION BETWEEN ABD FOLD. ENCOURAGED PT TO EMPTY BLADDER FREQUENTLY, VERBALIZES UNDERSTANDING. EDUCATED ON S/S OF INFECTION TO REPORT AND MEDICATIONS, VERBALIZES UNDERSTANDING AND DENIES QUESTIONS. BED IN LOW POSITION WITH UPPER SIDE RAILS RAISED X2. CALL LIGHT AND PHONE WITHIN REACH. WILL CONTINUE TO MONITOR AND ASSIST PRN.
--- NOTE | 2019-01-21 22:02 | NUR ---
PAIN 8/10 ABD AND INCISIONAL ACHING. REQUESTS NORCO, GIVEN PER ORDER AND REQUEST. PT APPREHENSIVE ABOUT TAKING NORCO, STATES "I'M AFRAID IT IS THE REASON THAT I HAVE BEEN GETTING HEADACHE, BUT I JUST DON'T KNOW." DENIES HEADACHE AT THIS TIME. EDUCATED PT ON MEDICATION AND INSTRUCTED THAT SHE IF DEVELOPS HEADACHE FOLLOWING TAKING MEDICATION RN WOULD LIST MED ALLERGY AND CONTACT . VERBALIZES UNDERSTANDING AND AGREEMENT.
--- NOTE | 2019-01-21 22:17 | NUR ---
AMBULATING IN DANIEL WITH SPOUSE, STEADY GAIT NOTED. REQUEST UPDRAFT. RT YANELIS NOTIFIED AND WILL COME TO UNIT TO ADMINISTER.
--- NOTE | 2019-01-21 22:28 | NUR ---
BACK TO ROOM FROM AMBULATING IN DANIEL. 400 MLS LIGHT BLUE TINGED URINE EMPTIED FROM HAT. SCD'S ON BLE. DENIES NEEDS. PAIN 4/10, DENIES NEED FOR INTERVENTION. BED IN LOW POSITION WITH UPPER SIDE RAILS RAISED X2. CALL LIGHT, TABLE, AND PHONE WITHIN REACH. WILL CONTINUE TO MONITOR AND ASSIST PRN.
--- NOTE | 2019-01-21 22:30 | NUR ---
YANELIS, RT ON UNIT FOR REQUESTED UPDRAFT.
--- NOTE | 2019-01-21 22:40 | NUR ---
PAIN REASSESSMENT COMPLETED, PAIN 4. DENIES HEADACHE AND NEEDS. CONVERSING WITH SPOUSE AND STATES THAT SHE IS GOING TO "TRY TO GO TO SLEEP AND REST." WILL CONTINUE TO MONITOR.
[2019-01-22 00:37] VITALS: BP 108/71
--- NOTE | 2019-01-22 00:40 | NUR ---
OPENS EYES WITH RN ENTRY TO ROOM. PAIN 3/10 INCISIONAL BURNING, STINGING, AND ABD SORENESS. DENIES NEED FOR INTERVENTION. VSS. REMAINS ON RA. SPRITE PROVIDED PER REQUEST. SCD'S ON BLE. DENIES ADDITIONAL NEEDS. BED IN LOW POSITION WITH UPPER SIDE RAILS RAISED X2. CALL LIGHT AND PHONE WITHIN REACH. WILL CONTINUE TO MONITOR AND ASSIST PRN.
--- NOTE | 2019-01-22 02:38 | NUR ---
SCHEDULED TORADOL GIVEN PER EMAR, PAIN 02/03. REPORTS THAT SHE HASN'T VOIDED SINCE GOING TO BED BEFORE AMBULATING IN HALLWAY. ENCOURAGED TO VOID, UP TO BATHROOM, VOIDED 500 MLS LIGHT BLUE TINGED URINE IN HAT. NO VAGINAL DISCHARGE/BLEEDING NOTED. BACK TO BED, SCD'S BACK ON BLE. REQUESTS ARMINDA, C/O PAIN 03/06. GIVEN PER REQUEST. SODA PROVIDED. DENIES ADDITIONAL NEEDS AND HEADACHE. BED IN LOW POSITION WITH UPPER SIDE RAILS RAISED X2. CALL LIGHT AND PHONE WITHIN REACH. WILL CONTINUE TO MONITOR AND ASSIST PRN.
--- NOTE | 2019-01-22 03:08 | NUR ---
PAIN REASSESSMENT COMPLETED. PT RESTING WITH EYES CLOSED IN SEMI-FOWLERS POSITION, SNORING AUBILE FROM PT. RESP REGULAR AND UNLABORED, NO S/S OF DISTRESS NOTED. BED IN LOW POSITION WITH UPPER SIDE RAILS RAISED X2. CALL LIGHT AND PHONE WITHIN REACH. WILL CONTINUE TO MONITOR AND ASSIST PRN.
[2019-01-22 03:55] VITALS: BP 99/64
--- NOTE | 2019-01-22 03:55 | NUR ---
RT IN ROOM FOR UPDRAFT TREATMENT.
--- NOTE | 2019-01-22 06:32 | NUR ---
COMPLETING BREATHING TREATMENT. REQUEST MAXALT TAB, C/O HEADACHE BETWEEN EYEBROWS. REPORTS THAT IT BEGAN WHEN SHE GOT UP TO VOID. MAXALT NOT AVAILABLE ON UNIT, GLOBAL FIND DONE, AVAILABLE IN PCU. MIK HUITRON SUPERVISIOR NOTIFIED AND WILL BRING TO UNIT. MI PROVIDED PT PER REQUEST. DENIES ADDITIONAL NEEDS. PT NOTIFIED THAT SOFTWARE ENGINEER WILL BRING MAXALT TO UNIT. ARMINDA OFFERED AND PT STATES THAT SHE WOULD PERFER TO TAKE MAXALT FIRST.
--- NOTE | 2019-01-22 07:01 | NUR ---
REPORT GIVEN TO DAY SHIFT.
--- NOTE | 2019-01-22 07:07 | NUR ---
ASSUMED CARE OF THIS PATIENT AT THIS TIME. C/O 04/05 FRONTAL TOTH BETWEEN EYES. MAXALT 10 MG GIVEN PO FOR RELIEF OF PAIN. SAYS IT WORKED LAST NIGHT. SHIFT ASSESSMENT COMPLETED. TORADOL IS DUE AT APPROX 0830. HAS BEEN UP TO AMBULATE BY SELF, PASSING FLATUS, IN ROOM. NO ADDITIONAL REQUESTS, SIDE RAILS UP X 2, CALL LIGHT IN REACH, LIGHTS ON LOW DUE TO LIGHT SENSITIVITY.
[2019-01-22 07:09] VITALS: BP 107/68
--- NOTE | 2019-01-22 08:46 | NUR ---
SITTING UP ON EDGE OF BED. FINISHED WITH BREAKFAST. ATE 50%. FRIEND IS BRUSHING HAIR. PLANS TO AMBULATE IN DANIEL. 0/10 HEADACHE PAIN. 6/10 INCISIONAL PRESSURE, BURNING. SCHEDULED TORADO GIVEN, DECLINES ADDITIONAL PAIN MEDICATION AT THIS TIME.
--- NOTE | 2019-01-22 08:47 | NUR ---
AMBULATING IN DANIEL WITH AND FRIEND. NO PROBLEMS OR COMPLAINTS.
--- NOTE | 2019-01-22 10:11 | NUR ---
RESPIRATORY TREATMENT COMPLETED BY RT. DR GREGG NOW IN ROOM TO SEE PATIENT.
--- NOTE | 2019-01-22 10:34 | NUR ---
NORCO 10 MG GIVEN PO PER REQUEST OF PATIENT FOR 6/10 INCISIONAL PRESSURING SHARP PAIN. READY TO GO HOME. VISITORS X 2 IN ROOM.
[2019-01-22] MEDS ORDERED: HYDROCODON-ACE1 EAC2 PO (10:47)
[2019-01-22] MEDS ORDERED: MAXALT10 MG PO (10:48)
--- NOTE | 2019-01-22 11:28 | NUR ---
SALINE LOCK DC'D WITH TIP INTACT BY Marcelino DANG RN.
--- NOTE | 2019-01-22 11:29 | NUR ---
PAIN DECREASED TO 5/10. DC INSTRUCTIONS COMPLETED TO INCLUDE VERBAL AND WRITTEN INFORMATION ON POST OP CARE FOR HYSTERECTOMY, S&S INFECTION, MOOD CHANGES, MEDICATION ADMINISTRATION AND FOLLOW-UP. VERBALIZED UNDERSTANDING. HAS APPOINTMENT ALREADY SCHEDULED FOR F/U WITH DR ALCAZAR FOR STAPLE REMOVAL. DC'D VIA WHEELCHAIR AT THIS TIME. ALL BELONGINGS REMOVED FROM ROOM. HAS DC INSTRUCTIONS AND PRESCRIPTIONS. IS DRIVING.
== END 2019-01-22 11:29 | disposition home or self-care (01) | DRG 743 ==
LOC: D.SDCHOLD 01-20 05:30 → D.LD 01-20 10:08
PROVIDERS: ADMIT Obstetrics & Gynecology; ATTEND Obstetrics & Gynecology
PROC: 0UT00ZZ Resection of Right Ovary, Open Approach (ICD-10-PCS; 2019-01-20)
PROC: 0UT90ZL Resection of Uterus, Supracervical, Open Approach (ICD-10-PCS; principal; 2019-01-20 07:30)
PROC: 0UT70ZZ Resection of Bilateral Fallopian Tubes, Open Approach (ICD-10-PCS; 2019-01-20 07:30)
DX: N92.0 Excessive and frequent menstruation with regular cycle (principal); D64.9 Anemia, unspecified; N80.0 Endometriosis of uterus; N32.89 Other specified disorders of bladder

== ENCOUNTER 2019-01-26 11:13 | Inpatient (IN) | payer MEDICAID ==
[2019-01-26 11:00] VITALS: BP 133/65
[~2019-01-26 11:13] MED LIST: ADIPEX-P37.5 M1 PO; ALBUTEROL0.63 MG/3 INH; EPIPEN 2-P0.3 MG/0.3 IM; HYDROCODON-ACE1 EAC2 PO; MAXALT10 MG PO; PROZAC20 MG PO; SUDOGEST30 MG PO; XOPENEX HFA15 GM INH
[2019-01-26 13:40] LABS: EOSINOPHILS 12.2 % (0-7); HEMATOCRIT 38.6 % (36.0-48.0); HEMOGLOBIN 12.8 g/dL (12-16); IMMATURE GRANULOCYTES 0.4 % (0-5); LYMPHOCYTES 27.7 % (15-50); MCHC 33.2 g/dL (31.0-37.0); MCV 87.5 fL (80.0-100.0); MEAN PLATELET VOLUME 9.6 fL (7.4-10.4); NEUTROPHILS 48.7 % (40-80); RBC 4.41 10x6/uL (4.00-5.40); RDW 22.2 % (11.5-14.5); WBC 8.3 10x3/uL (4.8-10.8)
[2019-01-26 13:45] LABS: PLATELET COUNT 338 10x3/uL (130-400)
[2019-01-26 13:54] LABS: APTT 26.7 SECONDS (22.8-39.4); INR 0.98 (0.85-1.17); PROTIME 12.5 SECONDS (11.6-15.0)
[2019-01-26 13:57] LABS: ALBUMIN 3.2 g/dL (3.4-5.0); ALKALINE PHOSPHATASE 87 U/L (46-116); ALT (SGPT) 43 U/L (10-68); BILIRUBIN - TOTAL 0.31 mg/dL (0.2-1.3); CALC OSMOLALITY 271 mosm/kg (275-300); CARBON DIOXIDE 24.1 mmol/L (21.0-32.0); CHLORIDE - SERUM 102 mmol/L (98-107); CREATININE - SERUM 0.5 mg/dL (0.6-1.3); GLUCOSE 73 mg/dL (74-106); MAGNESIUM - SERUM 1.8 mg/dL (1.8-2.4); PROTEIN - SERUM 7.1 g/dL (6.4-8.2); SODIUM 138 mmol/L (136-145); UREA NITROGEN 5 mg/dL (7-18); eGFR NON AFRICAN AMERICAN > 90 mL/min (90-120)
[2019-01-26 14:00] LABS: POTASSIUM - SERUM 4.7 mmol/L (3.5-5.1)
--- NOTE | 2019-01-26 14:30 | NUR ---
PATIENT ADMITTED TO ROOM 2212. ALERT AND ORIENTED X 3. LUNGS CLEAR BILATERALLY IN ALL HOGAN. HEART SOUNDS S1 AND S2 HEARD IN ALL HOGAN. BOWEL SOUNDS ACTIVE X 4. DENIES PROBLEMS WITH BM. INCISION FROM ABD SURGERY C/D/I. SKIN INTACT WTIHOUT REDNESS. IV TO LFA PATENT WITHOUT REDNESS. DENIES NEEDS. WILL CONTINUE TO MONITOR.
[2019-01-26 14:40] VITALS: BP 108/78; BMI 30.4
--- NOTE | 2019-01-26 15:17 | MORECARE ---
CASE MANAGEMENT DISCHARGE SUMMARY PATIENT: MARY KAY JEREZ UNIT: [id number] ADM DATE: 01/26/19 AGE: 43 : [birth year] SEX: F ROOM/BED: D.2212 AUTHOR: ADRIANNA OSBORNE PHYSICIAN: REFERRING PHYSICIAN: KAYLAH GREGG MD DATE OF SERVICE: 01/26/19 Discharge Plan Patient Name: MARY KAY JEREZ [facility] 1975 Planned Disposition: Home Anticipated Discharge Date: 01/30/19 Discharge Date: Expected LOS: 4 Initial Reviewer: [email or web address] Initial Review Date: 01/26/2019 Generated: 01/26/19 4:16 pm DCPIA - Discharge Planning Initial Assessment Updated by [email or web address]: Cynthia Lewis on 01/26/19 3:16 pm * Is the patient Alert and Oriented? Yes * How many steps to enter\exit or inside your home? * PCP Dr. Marcos * Pharmacy [facility] * Preadmission Environment Home with Family * ADLs Independent * Equipment Rolling Walker Tub Bench * List name and contact numbers for known caregivers / representatives who currently or will assist patient after discharge: Jamey Jerez - [facility] - [phone] * Verbal permission to speak to the caregivers and representatives has been obtained from the patient. Yes * Community resources currently utilized None * Additional services required to return to the preadmission environment? No * Can the patient safely return to the preadmission environment? Yes * Has this patient been hospitalized within the prior 30 days at any hospital? Yes Patient Name: MARY KAY JEREZ Page [phone] at 1517 All edits/amendments must be made on the electronic document DICTATION DATE: 01/26/191515 REGULATORY PRODUCT MANAGER: JOE 01/26/191515 RPT#: [id number] DC DATE: STATUS: ADM IN [facility] [address] [place] [address] END OF REPORT
--- NOTE | 2019-01-26 15:28 | MORECARE ---
CASE MANAGEMENT DISCHARGE SUMMARY PATIENT: MARY KAY JEREZ UNIT: [id number] ADM DATE: 01/26/19 AGE: 43 : 77 SEX: F ROOM/BED: D.2212 AUTHOR: ADRIANNA OSBORNE PHYSICIAN: REFERRING PHYSICIAN: DANIEL GREGG MD DATE OF SERVICE: 01/26/19 Discharge Plan Patient Name: MARY KAY JEREZ Facility: [facility]:[place] : 1975 Planned Disposition: Home Anticipated Discharge Date: 01/30/19 Discharge Date: Expected LOS: 4 Initial Reviewer: [email or web address] Initial Review Date: 01/26/2019 Generated: 01/26/19 4:27 pm DCP- Discharge Planning Updated by [email or web address]: Cynthia Lewis on 01/26/19 2:[address] Patient Name: MARY KAY JEREZ Admission Status: ER Accout number: [id number] Admission Date: 01-26-2019 : 1975 Admission Diagnosis: Attending: Daniel Gregg Current LOS: 1 Anticipated DC Date: 01-30-2019 Planned Disposition: Home Primary Insurance: MEDICAID [place] Discharge Planning Comments: CM met with patient to complete initial dc planning assessment. CM educated patient on the CM role and verbal consent given by patient to complete assessment. CM verified patient's address, phone number, and emergency contact phone numbers. Patient lives at home with her and reports she is mostly independent. She recently had open hysterectomy so is not able to life and is having to follow post op instructions. At discharge patient plans to return home with her and feels this is a safe discharge. CM discussed availability of home health, rehab services, and medical equipment. Patient denied known discharge needs at this time. Patient reports her will transport her home at time of discharge. CM will continue to follow and will assist as needed with dc plans/needs. Relations Liaison: Cynthia Lewis RN, [facility] DCPIA - Discharge Planning Initial Assessment Updated by [email or web address]: Cynthia Lewis on 01/26/19 3:16 pm * Is the patient Alert and Oriented? Yes * How many steps to enter\exit or inside your home? * PCP Dr. Marcos * [facility] [address] * Preadmission Environment Home with Family * ADLs Independent * Equipment Rolling Walker Tub Bench * List name and contact numbers for known caregivers / representatives who currently or will assist patient after discharge: Jamey Jerez - [facility] - [phone] * Verbal permission to speak to the caregivers and representatives has been obtained from the patient. Yes * Community resources currently utilized None * Additional services required to return to the preadmission environment? No * Can the patient safely return to the preadmission environment? Yes * Has this patient been hospitalized within the prior 30 days at any hospital? Yes Last DP export: 01/26/19 2:16 pm Patient Name: MARY KAY JEREZ Page [phone] at 1528 All edits/amendments must be made on the electronic document DICTATION DATE: 01/26/191526 SPECIFICATIONS WRITER: JOE 01/26/191526 RPT#: [id number] DC DATE: STATUS: ADM IN [facility] [address] [place] [address] END OF REPORT
[2019-01-26 16:00] VITALS: BP 106/80
[2019-01-26 17:01] VITALS: BMI 30.4
--- NOTE | 2019-01-26 17:37 | NUR ---
SITTING IN BED. FAMILY AT BEDSIDE. DENIES PAIN. DENIES NEEDS.
[2019-01-26 18:14] LABS: PRO BNP 251 pg/mL (0-125)
[2019-01-26 18:15] LABS: TROPONIN-I < 0.017 ng/mL (0.000-0.060)
[2019-01-26 20:00] VITALS: BP 124/86
--- NOTE | 2019-01-26 20:00 | NUR ---
ALERT RESTING IN BED, RESP UNLABORED O2 IN USE DENIES CHEST PAIN OR SHORTNESS OF BRERSTH, ABD WITH STERI STRIPS IN PLACE FROM PREVIOUS SUGERY, SEE SHIFT ASSESSMENT, CALL LIGHT IN REACH
[2019-01-27] VITALS: BP 96/60
[2019-01-27 02:39] LABS: HEMOGLOBIN 12.4 g/dL (12-16); MCHC 32.6 g/dL (31.0-37.0); MEAN PLATELET VOLUME 9.2 fL (7.4-10.4); RBC 4.27 10x6/uL (4.00-5.40); RDW 22.5 % (11.5-14.5); WBC 9.3 10x3/uL (4.8-10.8)
[2019-01-27 04:00] VITALS: BP 109/57
--- NOTE | 2019-01-27 07:23 | NUR ---
PATIENT SLEEPING. LUNGS CLEAR BILATERALLY IN ALL HOGAN. HEART SOUND S1 AND S2 HEARD IN ALL HOGAN. BOWEL SOUNDS ACTIVE X 4. O2 IN PLACE AT 2L. IV TO LEFT AC PATENT WITHOUT REDNESS. SKIN INTACT WITHOUT REDNESS. SCDS IN PLACE. AT BEDSIDE. WILL CONTINUE TO MONITOR.
[2019-01-27 08:00] VITALS: BP 105/70
--- NOTE | 2019-01-27 10:34 | NUR ---
SITTING IN BED. FAMILY AT BEDSIDE. REVIEWED HOME MEDS. DENIES NEEDS. O2 INCREASED TO 4L R/T SOB. O2 SAT 95% ON 4L. WILL CONTINUE TO MONITOR.
--- NOTE | 2019-01-27 10:56 | NUR ---
REQUESTED PRN UPDRAFT. RT NOTIFIED. STATES JUST HAD BREATHING TREATMENT BUT WILL GO TALK TO PATIENT. O2 SAT 96% ON 2L.
--- NOTE | 2019-01-27 11:03 | NUR ---
SPOKE TO ABENA, PULMONOLOGY ABOUT PATIENT REQUEST FOR UPDRAFT. STATES OK TO GIVE ONE TIME DOSE THEN BACK TO [id number]. EDUCATION PROVIDED. RT NOTIFIED.
[2019-01-27 12:30] VITALS: BP 118/57
--- NOTE | 2019-01-27 12:36 | NUR ---
SITTING IN BED. DENIES PAIN. DENIES NEEDS. WILL CONTINUE TO MONITOR.
--- NOTE | 2019-01-27 14:00 | NUR ---
1355- TOOK O2 OFF, TO SEE WHAT POX IS ON ROOM AIR. RESP CONSULT FOR WALK TEST AND ABG'S
--- NOTE | 2019-01-27 15:05 | MORECARE ---
CASE MANAGEMENT DISCHARGE SUMMARY PATIENT: MARY KAY JEREZ UNIT: [id number] ADM DATE: 01/26/19 AGE: 43 : 77 SEX: F ROOM/BED: D.2212 AUTHOR: ADRIANNA OSBORNE PHYSICIAN: REFERRING PHYSICIAN: DANIEL GREGG MD DATE OF SERVICE: 01/27/19 Discharge Plan Patient Name: MARY KAY JEREZ Facility: [facility]:[place] : 1975 Planned Disposition: Home Anticipated Discharge Date: 01/30/19 Discharge Date: Expected LOS: 4 Initial Reviewer: [email or web address] Initial Review Date: 01/26/2019 Generated: 01/27/19 4:05 pm DCP- Discharge Planning Updated by [email or web address]: Cynthia Lewis on 01/26/19 2:[address] Patient Name: MARY KAY JEREZ Admission Status: ER Accout number: [id number] Admission Date: 01-26-2019 : 1975 Admission Diagnosis: Attending: Daniel Gregg Current LOS: 1 Anticipated DC Date: 01-30-2019 Planned Disposition: Home Primary Insurance: MEDICAID [place] Discharge Planning Comments: CM met with patient to complete initial dc planning assessment. CM educated patient on the CM role and verbal consent given by patient to complete assessment. CM verified patient's address, phone number, and emergency contact phone numbers. Patient lives at home with her and reports she is mostly independent. She recently had open hysterectomy so is not able to life and is having to follow post op instructions. At discharge patient plans to return home with her and feels this is a safe discharge. CM discussed availability of home health, rehab services, and medical equipment. Patient denied known discharge needs at this time. Patient reports her will transport her home at time of discharge. CM will continue to follow and will assist as needed with dc plans/needs. Thread Laster: Cynthia Lewis RN, [facility] DCPIA - Discharge Planning Initial Assessment Updated by [email or web address]: Cynthia Lewis on 01/26/19 3:16 pm * Is the patient Alert and Oriented? Yes * How many steps to enter\exit or inside your home? * P[facility] Dr. Marcos * [facility] [address] * Preadmission Environment Home with Family * ADLs Independent * Equipment Rolling Walker Tub Bench * List name and contact numbers for known caregivers / representatives who currently or will assist patient after discharge: Jamey Jerez - [facility] - [phone] * Verbal permission to speak to the caregivers and representatives has been obtained from the patient. Yes * Community resources currently utilized None * Additional services required to return to the preadmission environment? No * Can the patient safely return to the preadmission environment? Yes * Has this patient been hospitalized within the prior 30 days at any hospital? Yes External Providers External Provider: Rinku García Contact Date: Service Request Date: Service Type: Resolution: Reviewer: Comments: Last DP export: 01/26/19 2:28 pm Patient Name: MARY KAY JEREZ Page [phone] at 1505 All edits/amendments must be made on the electronic document DICTATION DATE: 01/27/191503 COLOR CHECKER ROVING OR YARN: JOE 01/27/19 1504 RPT#: [id number] DC DATE: STATUS: ADM IN [facility] [address] [place] [address] END OF REPORT
--- NOTE | 2019-01-27 15:19 | NUR ---
HEPARIN DRIP DISCONTINUED PER ORDER
--- NOTE | 2019-01-27 15:21 | MORECARE ---
CASE MANAGEMENT DISCHARGE SUMMARY PATIENT: MARY KAY JEREZ UNIT: [id number] ADM DATE: 01/26/19 AGE: 43 : [birth year] SEX: F ROOM/BED: D.2212 AUTHOR: ADRIANNA OSBORNE PHYSICIAN: REFERRING PHYSICIAN: DANIEL GREGG MD DATE OF SERVICE: 01/27/19 Discharge Plan Patient Name: MARY KAY JEREZ Facility: [facility]:[place] : 1975 Planned Disposition: Home Anticipated Discharge Date: 01/30/19 Discharge Date: Expected LOS: 4 Initial Reviewer: [email or web address] Initial Review Date: 01/26/2019 Generated: 01/27/19 4:20 pm Comments DCP- Discharge Planning Updated by [email or web address]: Cris Vizcaino on 01/27/19 2:[address] WALK TEST COMPLETED PATIENT DROPPED DOWN TO 88% WHEN AMBULATED, KOSTA WITH LINCARE. CM TO ASSIST WITH DC PLANNING NEEDED DCP- Discharge Planning Updated by [email or web address]: Cynthia Lewis on 01/26/19 2:[address] Patient Name: MARY KAY JEREZ Admission Status: ER Accout number: [id number] Admission Date: 01-26-2019 : 1975 Admission Diagnosis: Attending: Daniel Gregg Current LOS: 1 Anticipated DC Date: 01-30-2019 Planned Disposition: Home Primary Insurance: MEDICAID [place] Discharge Planning Comments: CM met with patient to complete initial dc planning assessment. CM educated patient on the CM role and verbal consent given by patient to complete assessment. CM verified patient's address, phone number, and emergency contact phone numbers. Patient lives at home with her and reports she is mostly independent. She recently had open hysterectomy so is not able to life and is having to follow post op instructions. At discharge patient plans to return home with her and feels this is a safe discharge. CM discussed availability of home health, rehab services, and medical equipment. Patient denied known discharge needs at this time. Patient reports her will transport her home at time of discharge. CM will continue to follow and will assist as needed with dc plans/needs. Technical Lead: Cynthia Lewis RN, [facility] DCPIA - Discharge Planning Initial Assessment Updated by [email or web address]: Cynthia Lewis on 01/26/19 3:16 pm * Is the patient Alert and Oriented? Yes * How many steps to enter\exit or inside your home? * PCP Dr. Marcos * Pharmacy [facility] on [address] * Preadmission Environment Home with Family * ADLs Independent * Equipment Rolling Walker Tub Bench * List name and contact numbers for known caregivers / representatives who currently or will assist patient after discharge: Jamey Jerez [facility] - [phone] * Verbal permission to speak to the caregivers and representatives has been obtained from the patient. Yes * Community resources currently utilized None * Additional services required to return to the preadmission environment? No * Can the patient safely return to the preadmission environment? Yes * Has this patient been hospitalized within the prior 30 days at any hospital? Yes Last DP export: 01/27/19 2:05 pm Patient Name: MARY KAY JEREZ Page [phone] at 1521 All edits/amendments must be made on the electronic document DICTATION DATE: 01/27/19 1520 FIELD STAFF MANAGER: JOE 01/27/19 1520 RPT#: [id number] DC DATE: STATUS: ADM IN [facility] [address] [place] [address] END OF REPORT
[2019-01-27 16:13] VITALS: BP 137/80
[2019-01-27] MEDS ORDERED: ELIQUIS5 MG PO (16:30)
--- NOTE | 2019-01-27 17:15 | NUR ---
DISCHARGE EDUCATION PROVIDED BOTH WRITTEN AND VERBAL. VERBALIZED UNDERSTANDING. DENIES FURTHER QUESTIONS. IV REMOVED FROM LFA WITH TIP INTACT. DISCHARGED HOME WITH OXYGEN AND ALL BELONGINGS WITH
--- NOTE | 2019-01-30 08:22 | MORECARE ---
CASE MANAGEMENT DISCHARGE SUMMARY PATIENT: MARY KAY JEREZ UNIT: [id number] ADM DATE: 01/26/19 AGE: 44 : 77 SEX: F ROOM/BED: D.2212 AUTHOR: ADRIANNA OSBORNE PHYSICIAN: REFERRING PHYSICIAN: DANIEL GREGG MD DATE OF SERVICE: 01/30/19 Discharge Plan Patient Name: MARY KAY JEREZ Facility: [facility]:[place] : 1975 Planned Disposition: Home Anticipated Discharge Date: 01/30/19 Discharge Date: 01/27/2019 Expected LOS: 4 Initial Reviewer: [email or web address] Initial Review Date: 01/26/2019 Generated: 01/30/19 9:22 am Comments DCP- Discharge Planning Updated by [email or web address]: Cris Vizcaino on 01/27/19 2:[address] WALK TEST COMPLETED PATIENT DROPPED DOWN TO 88% WHEN AMBULATED, KOSTA WITH LINCARE. CM TO ASSIST WITH DC PLANNING NEEDED DCP- Discharge Planning Updated by [email or web address]: Cynthia Lewis on 01/26/19 2:[address] Patient Name: MARY KAY JEREZ Admission Status: ER Accout number: [id number] Admission Date: 01-26-2019 : 1975 Admission Diagnosis: Attending: Daniel Gregg Current LOS: 1 Anticipated DC Date: 01-30-2019 Planned Disposition: Home Primary Insurance: MEDICAID [place] Discharge Planning Comments: CM met with patient to complete initial dc planning assessment. CM educated patient on the CM role and verbal consent given by patient to complete assessment. CM verified patient's address, phone number, and emergency contact phone numbers. Patient lives at home with her and reports she is mostly independent. She recently had open hysterectomy so is not able to life and is having to follow post op instructions. At discharge patient plans to return home with her and feels this is a safe discharge. CM discussed availability of home health, rehab services, and medical equipment. Patient denied known discharge needs at this time. Patient reports her will transport her home at time of discharge. CM will continue to follow and will assist as needed with dc plans/needs. Induction Machine Operator: Cynthia Lewis RN, [facility] DCPIA - Discharge Planning Initial Assessment Updated by [email or web address]: Cynthia Lewis on 01/26/19 3:16 pm * Is the patient Alert and Oriented? Yes * How many steps to enter\exit or inside your home? * PCP Dr. Marcos * [facility] [address] * Preadmission Environment Home with Family * ADLs Independent * Equipment Rolling Walker Tub Bench * List name and contact numbers for known caregivers / representatives who currently or will assist patient after discharge: Jamey Jerez [facility] - [phone] * Verbal permission to speak to the caregivers and representatives has been obtained from the patient. Yes * Community resources currently utilized None * Additional services required to return to the preadmission environment? No * Can the patient safely return to the preadmission environment? Yes * Has this patient been hospitalized within the prior 30 days at any hospital? Yes Last DP export: 01/27/19 2:20 pm Patient Name: MARY KAY JEREZ Page [id number] at 0822 All edits/amendments must be made on the electronic document DICTATION DATE: 01/30/19820 CINDER MAN: JOE 01/30/19820 RPT#: [id number] DC DATE:01/27/19 STATUS: DIS IN [facility] [address] [place] [address] END OF REPORT
--- NOTE | 2019-02-03 16:41 | EC ---
PATIENT:MARY KAY YAP DATE OF SERVICE: 01/26/19 SEX: F MEDICAL RECORD: [id number] DATE OF : [birth year] LOCATION:D.MS [address] AGE OF PATIENT: 44 ADMISSION DATE: 01/26/19 REFERRING PHYSICIAN: INTERPRETING PHYSICIAN: KATIA BACON MD ECHOCARDIOGRAM REPORT ECHO CHARGES 4 ECHO COMPLETE Date: 01/27/19 CLINICAL DIAGNOSIS: PULMONARY EMBOLISM ECHOCARDIOGRAPHIC MEASUREMENTS (adult normal given) AC root (d.<3.7cm) 3.4 cm LV Septum d (<1.2 cm> 1.3 cm Valve Excursion 1.9 cm LV Septum (systole) 1.5 cm Left Atria (s.<4.0cm> 3.4 cm LVPW d(<1.2cm) 1.3 cm RV (d.<2.3cm) 3.2 cm LVPW (sytole) 1.4 cm LV diastole(<5.6CM) 4.6 cm MV E-F(>70mm/sec) cm LV systole 3.4 cm LVOT Diameter 1.8 cm MV exc.(>10mm) 1.9 cm Est.ejection fraction (50-75%) % DOPPLER: LVIT cm/sec A 84.0 cm/sec E 50.0 cm/sec LA cm/sec RVSP 23 mmHg LVOT 118 cm/sec AOP1/2T m/s Asc. Ao 137 cm/sec RVOT 112 cm/sec RA cm/sec PA 153 cm/sec AV Gradient Peak 7.51 mmHg AV Mean 3.99 mmHg AV Area 2.3 cm MV Gradient Peak 4.02 mmHg MV Mean 1.69 mmHg MV Area cm COMMENTS: Cutlet Maker Pork: Barb ASCENCIO Elevator Examiner And Adjuster: 1 Dr. Bacon TAPE# PACS Pericardial Effusion N DATE OF SERVICE: ECHOCARDIOGRAM DATE OF SERVICE: 01/27/2019 FINDINGS: 1. Left ventricular chamber size is within normal limits. Left ventricular systolic function is normal. Overall ejection fraction estimated at 55% to 60%. 2. Left atrium, right atrium and right ventricular chamber sizes are within ECHOCARDIOGRAM REPORT [id number] MARY KAY YAP normal limits. 3. Valvular structures have normal structure and motion. 4. Doppler interrogation reveals no significant valvular insufficiency or stenosis. Pulmonary systolic pressure is normal, estimated at 23 mmHg. 5. No evidence of pericardial effusion or left ventricular thrombus. TRANSINT:[id number] Voice Confirmation ID: [id number] DOCUMENT ID: [id number] KATIA BACON MD at 1641 CC: [id number] DICTATION DATE: 01/27/19 1239 FLARING MACHINE OPERATOR: 01/27/19 1325 DIS IN 01/27/19 [facility] [address] [place] [id number]
== END 2019-01-27 17:16 | disposition home or self-care (01) | DRG 176 ==
LOC: D.ER 11:13 → D.MS 13:21 → D.EDHOLD 13:21 → D.MS 13:36
PROVIDERS: Emergency Medicine; Internal Medicine Pulmonary Disease; ADMIT Obstetrics & Gynecology; ATTEND Obstetrics & Gynecology
DX: I26.99 Other pulmonary embolism without acute cor pulmonale (principal); J98.11 Atelectasis; J45.909 Unspecified asthma, uncomplicated; D64.9 Anemia, unspecified

== ENCOUNTER 2019-03-23 12:53 | Inpatient (IN) | payer MEDICAID ==
[~2019-03-23] VITALS: Ht 180.3 cm; Wt 77.1 kg
[~2019-03-23 12:53] MED LIST changes: +ELIQUIS5 MG PO
[2019-03-23 13:36] VITALS: BP 130/79
[2019-03-23 13:42] LABS: BASOPHILS 0.6 % (0-2); EOSINOPHILS 3.9 % (0-7); HEMATOCRIT 39.4 % (36.0-48.0); HEMOGLOBIN 13.4 g/dL (12-16); IMMATURE GRANULOCYTES 0.2 % (0-5); LYMPHOCYTES 18.7 % (15-50); MCH 31.6 pg (26.0-34.0); MCV 92.9 fL (80.0-100.0); MEAN PLATELET VOLUME 9.5 fL (7.4-10.4); MONOCYTES 5.7 % (2-11); NEUTROPHILS 70.9 % (40-80); PLATELET COUNT 314 10x3/uL (130-400); RBC 4.24 10x6/uL (4.00-5.40); RDW 14.3 % (11.5-14.5); WBC 10.5 10x3/uL (4.8-10.8)
[2019-03-23 13:46] LABS: ALBUMIN 3.2 g/dL (3.4-5.0); ALKALINE PHOSPHATASE 77 U/L (46-116); ALT (SGPT) 32 U/L (10-68); AMYLASE - SERUM 55 U/L (25-115); BILIRUBIN - TOTAL 0.46 mg/dL (0.2-1.3); CALC OSMOLALITY 274 mosm/kg (275-300); CALCIUM 8.6 mg/dL (8.5-10.1); CARBON DIOXIDE 27.4 mmol/L (21.0-32.0); CHLORIDE - SERUM 104 mmol/L (98-107); CREATININE - SERUM 0.7 mg/dL (0.6-1.3); GLUCOSE 87 mg/dL (74-106); LIPASE 178 U/L (73-393); POTASSIUM - SERUM 3.8 mmol/L (3.5-5.1); PROTEIN - SERUM 7.2 g/dL (6.4-8.2); SODIUM 139 mmol/L (136-145); UREA NITROGEN 8 mg/dL (7-18); eGFR NON AFRICAN AMERICAN > 90 mL/min (90-120)
--- NOTE | 2019-03-23 14:18 | NUR ---
GABRILELE TC FROM [facility] IN . HAVE PT START DRINKIN GWATER TO FILL BLADDER FOR PELVIC US. PT RESTING DENIES NAUSEA, WATER GIVEN AND EXPLAINED RATIONALE VERB UNDER
[2019-03-23 14:19] LABS: APPEARANCE HAZY (CLEAR); BILIRUBIN NEGATIVE (NEGATIVE); COLOR YELLOW (YELLOW); GLUCOSE NEGATIVE (NEGATIVE); KETONE NEGATIVE (NEGATIVE); NITRITE NEGATIVE (NEGATIVE); PROTEIN NEGATIVE (NEGATIVE); UROBILINOGEN NORMAL (NORMAL)
[2019-03-23 14:20] LABS: BACTERIA MODERATE /hpf (NONE SEEN); EPITHELIAL CELLS 0-5 /hpf (0-5); MUCUS <1+ /lpf (NONE SEEN); RED CELLS - URINE RARE /hpf (0-5); WHITE CELLS - URINE 0-5 /hpf (0-5)
[2019-03-23 14:22] VITALS: BP 103/59
--- NOTE | 2019-03-23 14:46 | NUR ---
TO US VIA WC
[2019-03-23 15:35] VITALS: BP 125/96
--- NOTE | 2019-03-23 15:36 | NUR ---
RTN FROM US. C/O NAUSEA AND RTN OF ABD PAIN
[2019-03-23 16:15] VITALS: BP 100/58
--- NOTE | 2019-03-23 16:27 | NUR ---
REPORT TO YUNIOR ALEJANDRA BY SBAR FORMAT
[2019-03-23 16:45] VITALS: BP 113/64
--- NOTE | 2019-03-23 16:46 | NUR ---
PT TRANSPORTED TO ROOM #1253 VIA STRETCHER, CONDITION STABLE.
--- NOTE | 2019-03-23 16:51 | NUR ---
ER TO BRING PATIENT ON STRETCHER, NO REPORT HAS BEEN CALLED TO US. I TALKED TO NASEEM IN THE ED FOR REPORT. WAS TOLD THAT SHE WILL BE NPO PAST MIDNIGHT FOR SURGERY TOMORROW PER DR PEDROZA.
--- NOTE | 2019-03-23 16:58 | NUR ---
RECEIVED PER STRETCHER FROM ER. SHE WAS ABLE TO TRANSFER SELF TO BED. RESP EVEN WITHOUT LABOR. BBS CLEAR. ORIENT TO ROOM INCLUDING HOW TO USE CALL LIGHT. SHE C/O ITCHING AND IS SCRATCHING ON AND OFF. SCAR TO ABDOMEN CLOSED AND HEALED WELL. SAFETY PRECAUTIONS IN PLACE AND PLAN OF CARE INITIATED.
[2019-03-23] MEDS ORDERED: ATIVAN0.5 MG (17:05)
[2019-03-23] MEDS ORDERED: PHENERGAN25 M1 PO (17:06)
[2019-03-23 17:23] VITALS: BP 115/84; BMI 23.7
--- NOTE | 2019-03-23 17:30 | NUR ---
DR GREGG CALLED ON HIS CELL PHONE FOR FURTHER ORDERS. NEW ORDERS RECEIVED AND NOTED.
--- NOTE | 2019-03-23 17:45 | NUR ---
IV INFUSING IN RIGHT A/C. SHE HAS HAD BENADRYL IVP FOR ITCHING. FAN PROVIDED IN ROOM DUE TO C/O BEING HOT. CL IN REACH ALERT ABLE TO VOICED NEEDS
--- NOTE | 2019-03-23 18:30 | NUR ---
HER ITCHING HAS IMPROVED. NO OTHER C/O AT THIS TIME
[2019-03-24] VITALS: BP 115/75
--- NOTE | 2019-03-24 01:58 | NUR ---
ASSESSED AT THE BEGINNING OF THE SHIFT. PT IS ALERT AND ORIENTED, ABLE TO VERBALZIE NEEDS. SHE ASKED FOR PAIN MED AT THE BEGINNING OF THE SHIFT AND WAS STILL HAVING SOME MILD ITCHING FROM EARLIER FOR WHICH SHE HAD RECEIVED BENADRYL. SHE STATED THIS HELPED AND WAS HAVING LESS ITCHING WITH THE DEMEROL THAN THE DILAUDID. HER CAME IN LATER AND IS SPENDING THE NIGHT. AT THIS TIME SHE IS SLEEPING AND HAS NO COMPLAINTS.
[2019-03-24 04:08] VITALS: BP 103/52
[2019-03-24 06:16] LABS: BASOPHILS 0.8 % (0-2); EOSINOPHILS 7.3 % (0-7); HEMATOCRIT 36.6 % (36.0-48.0); HEMOGLOBIN 12.1 g/dL (12-16); IMMATURE GRANULOCYTES 0.2 % (0-5); LYMPHOCYTES 26.3 % (15-50); MCH 31.2 pg (26.0-34.0); MCHC 33.1 g/dL (31.0-37.0); MCV 94.3 fL (80.0-100.0); MEAN PLATELET VOLUME 9.5 fL (7.4-10.4); MONOCYTES 12.4 % (2-11); PLATELET COUNT 262 10x3/uL (130-400); RBC 3.88 10x6/uL (4.00-5.40); RDW 14.2 % (11.5-14.5)
[2019-03-24 06:36] LABS: ALBUMIN 2.6 g/dL (3.4-5.0); ALKALINE PHOSPHATASE 70 U/L (46-116); ALT (SGPT) 24 U/L (10-68); BILIRUBIN - TOTAL 0.38 mg/dL (0.2-1.3); CALC OSMOLALITY 276 mosm/kg (275-300); CALCIUM 8.4 mg/dL (8.5-10.1); CHLORIDE - SERUM 105 mmol/L (98-107); CREATININE - SERUM 0.7 mg/dL (0.6-1.3); GLUCOSE 93 mg/dL (74-106); POTASSIUM - SERUM 3.7 mmol/L (3.5-5.1); PROTEIN - SERUM 6.2 g/dL (6.4-8.2); SODIUM 139 mmol/L (136-145); UREA NITROGEN 9 mg/dL (7-18); eGFR NON AFRICAN AMERICAN > 90 mL/min (90-120)
[2019-03-24 06:37] LABS: WBC 6.6 10x3/uL (4.8-10.8)
[2019-03-24 07:53] VITALS: BP 107/71
--- NOTE | 2019-03-24 07:55 | NUR ---
PT AM MEDS ADMINISTERED. PAIN MED REQ AND REC'D. PT ASSESSMENT COMPLETED. REPORTED SURGERY ON HOLD. BREAKFAST TRAY ORDERED. PT DENIES FURTHER NEEDS. WCTM.
[2019-03-24 11:57] VITALS: BP 106/72
--- NOTE | 2019-03-24 14:31 | NUR ---
PT REQ AND REC'D PAIN MEDICATION ALONG WITH BENADRYL. WCTM.
[2019-03-24 16:08] LABS: HEMATOCRIT 35.3 % (36.0-48.0); HEMOGLOBIN 11.8 g/dL (12-16); MCH 31.3 pg (26.0-34.0); MCHC 33.4 g/dL (31.0-37.0); MCV 93.6 fL (80.0-100.0); MEAN PLATELET VOLUME 9.4 fL (7.4-10.4); RBC 3.77 10x6/uL (4.00-5.40); RDW 13.9 % (11.5-14.5); WBC 6.6 10x3/uL (4.8-10.8)
[2019-03-24 16:19] LABS: APTT 27.2 SECONDS (22.8-39.4); INR 1.01 (0.85-1.17); PROTIME 12.8 SECONDS (11.6-15.0)
[2019-03-24 19:34] VITALS: BP 119/81
[2019-03-24 22:26] VITALS: BP 115/80
--- NOTE | 2019-03-25 00:25 | NUR ---
ASSESSED AT THE BEGINNING OF THE SHIFT. PT IS ALERT AND ORIENTED, ABLE TO VERBALZIE NEEDS. SHE IS AWARE THAT SHE WILL BE NPO AT MIDNIGHT. HER FAMILY ASSISTED HER WITH A SHOWER BEFORE BED AND LATE IN THE EVENING SHE RECAEIVED DILAUDID AND BENADRYL. SHE HAS COMPLAINED OF SOME ITCHING DESPITE THE BENADRYL BUT STATED SHE WAS ABLE TO HANDLE IT FOR THE BETTER PAIN CONTROL SHE GOT FROM THE DILAUDID. HER REMAINS IN THE ROOM ASLEEP AND SHE IS WATCHING TV. WILL CONTINUE TO MONITOR.
[2019-03-25 04:13] VITALS: BP 102/63
[2019-03-25 06:55] LABS: BASOPHILS 0.7 % (0-2); EOSINOPHILS 9.3 % (0-7); HEMATOCRIT 37.2 % (36.0-48.0); HEMOGLOBIN 12.2 g/dL (12-16); IMMATURE GRANULOCYTES 0.2 % (0-5); LYMPHOCYTES 33.6 % (15-50); MCH 30.8 pg (26.0-34.0); MCHC 32.8 g/dL (31.0-37.0); MCV 93.9 fL (80.0-100.0); MEAN PLATELET VOLUME 9.5 fL (7.4-10.4); NEUTROPHILS 47.2 % (40-80); PLATELET COUNT 269 10x3/uL (130-400); RBC 3.96 10x6/uL (4.00-5.40); RDW 13.8 % (11.5-14.5); WBC 5.9 10x3/uL (4.8-10.8)
[2019-03-25 07:06] LABS: ALBUMIN 2.7 g/dL (3.4-5.0); ALKALINE PHOSPHATASE 74 U/L (46-116); ALT (SGPT) 28 U/L (10-68); BILIRUBIN - TOTAL 0.24 mg/dL (0.2-1.3); CALC OSMOLALITY 272 mosm/kg (275-300); CALCIUM 8.7 mg/dL (8.5-10.1); CARBON DIOXIDE 29.6 mmol/L (21.0-32.0); CHLORIDE - SERUM 103 mmol/L (98-107); CREATININE - SERUM 0.7 mg/dL (0.6-1.3); GLUCOSE 85 mg/dL (74-106); POTASSIUM - SERUM 3.7 mmol/L (3.5-5.1); PROTEIN - SERUM 6.2 g/dL (6.4-8.2); SODIUM 138 mmol/L (136-145); UREA NITROGEN 6 mg/dL (7-18); eGFR NON AFRICAN AMERICAN > 90 mL/min (90-120)
[2019-03-25 07:11] LABS: INR 0.99 (0.85-1.17); PROTIME 12.6 SECONDS (11.6-15.0)
[2019-03-25 07:14] LABS: APTT 43.5 SECONDS (22.8-39.4)
[2019-03-25 08:03] VITALS: BP 126/85
--- NOTE | 2019-03-25 08:33 | NUR ---
ROUNDING DONE WITH PATIENT BEING NPO AT THIS TIME. DR ALCAZAR HAS BEEN IN TO SEE PATIENT AND SPOUSE. ON ROOM AIR. MULTIPLE TATTOOS TO BODY. RIGHT AC PIV SEEN WITH LR INFUSING AT 100 CC/HR ALONG WITH HEPARIN DRIP AT 11 CC/HR.
--- NOTE | 2019-03-25 08:35 | NUR ---
KIERAN POLO, RT HERE FOR EKG.
--- NOTE | 2019-03-25 09:02 | NUR ---
PRE-OP MEDS GIVEN.
--- NOTE | 2019-03-25 09:45 | NUR ---
DR ALCAZAR CALLS THIS RN TO ASCERTAIN LAST DOSE HEPARIN. CHECKED AND REVIEWED WITH MD VIA TELEPHONE.
--- NOTE | 2019-03-25 10:41 | NUR ---
PT C/O LEFT SIDED CHEST PAIN ON INSPIRATION. COLBY ZEPEDA BOWLING BALL ASSEMBLER NOTIFIED AND CXR ORDERED. PT RATES PAIN AT 7 ON 10 SCALE.
--- NOTE | 2019-03-25 10:55 | NUR ---
CASE CANCELLED BEFORE INCISION DUE TO HEPARIN DRIPP NOT DISCONTINUED
--- NOTE | 2019-03-25 11:17 | NUR ---
[address] W/FRUIT AND VEGETABLE PARER AND IV. [address]
--- NOTE | 2019-03-25 11:25 | NUR ---
POWER IN RR STATES THAT THE HEPARIN DRIP WAS ONLY STOPPED X 5 MIN FOR CTA. REPORT WAS CALLED TO THIS NURSE.
[2019-03-25 11:41] VITALS: BP 130/87
--- NOTE | 2019-03-25 11:42 | NUR ---
1136-PATIENT BACK FROM RR ON BED, WIDE AWAKE. PIV SEEN TO LEFT HAND WITH LF INFUSING AT 10 CC/HR. HEPARIN DRIP IS INFUSING TO RIGHT AC AT 11 CC/HR.
--- NOTE | 2019-03-25 11:54 | NUR ---
PAGE INTO DR ALCAZAR HE ASKED THAT HE BE PAGED WHEN WALKS ONTO FLOOR.
--- NOTE | 2019-03-25 11:59 | NUR ---
DR ALCAZAR TO CALL BACK AND CTA RESULTS GIVEN TO HIM. STATES THAT I CAN ORDERED HER A LUNCH TRAY.
--- NOTE | 2019-03-25 13:05 | NUR ---
DR ALCAZAR HERE IN TO PATIENT AND SPOUSE.
--- NOTE | 2019-03-25 13:23 | NUR ---
PAGE INTO DR ALCAZAR TO SEE IF WE NEED TO STAY ON THE HEPARIN DRIP. HE CALLED BACK AND SAID "YES". HE DOES NOT WANT HER ON THE ELIQUIS AT THIS TIME,
--- NOTE | 2019-03-25 14:32 | NUR ---
NO HEPARIN IN OMNICELL FOR BOLUS SINCE PTT IS 38.7. I CALLED [facility] IN PHARMACY FOR A DOSE I CAN NOT TRANSFER THIS TO ANOTHER FLOOR (I TRIED)
--- NOTE | 2019-03-25 14:43 | NUR ---
PTT LAB RESULTS OF 38.7. PER PROTOCL BOLUS OF 3000 UNITS OF HEPRAIN GIVEN ALONG WITH INCREASE OF DRIP. NEW LAB RE-DRAW ORDERED.
[2019-03-25 15:43] VITALS: BP 96/65
--- NOTE | 2019-03-25 16:50 | NUR ---
CALLED TO ROOM, NEED TO USE RESTROOM. ASSISTED HER TO RESTROOM TO VOID. DENIES FURTHER NEEDS. C/O SORE THROAT R/T TUBE THAT WAS IN FOR SURGERY.
--- NOTE | 2019-03-25 19:25 | NUR ---
PATIENT RESTING IN BED WITH NO S/S OF DISTRESS AND DENIES NEEDS AT THIS TIME. BED IN LOWEST POSITION AND CL WITHIN REACH. ENCOURAGED THE PATIENT TO CALL IF SHE HAS NEEDS. WILL CONTINUE TO MONITOR.
[2019-03-26] VITALS: BP 105/64
[2019-03-26 04:35] LABS: EOSINOPHILS 8.9 % (0-7); HEMATOCRIT 37.4 % (36.0-48.0); HEMOGLOBIN 12.5 g/dL (12-16); IMMATURE GRANULOCYTES 0.2 % (0-5); LYMPHOCYTES 31.2 % (15-50); MCH 31.4 pg (26.0-34.0); MCHC 33.4 g/dL (31.0-37.0); MEAN PLATELET VOLUME 9.4 fL (7.4-10.4); NEUTROPHILS 49.7 % (40-80); PLATELET COUNT 240 10x3/uL (130-400); RBC 3.98 10x6/uL (4.00-5.40); RDW 13.8 % (11.5-14.5); WBC 5.9 10x3/uL (4.8-10.8)
[2019-03-26 04:55] LABS: ALBUMIN 2.6 g/dL (3.4-5.0); ALKALINE PHOSPHATASE 72 U/L (46-116); ALT (SGPT) 31 U/L (10-68); BILIRUBIN - TOTAL 0.29 mg/dL (0.2-1.3); CALC OSMOLALITY 273 mosm/kg (275-300); CALCIUM 8.6 mg/dL (8.5-10.1); CARBON DIOXIDE 30.3 mmol/L (21.0-32.0); CHLORIDE - SERUM 103 mmol/L (98-107); CREATININE - SERUM 0.7 mg/dL (0.6-1.3); GLUCOSE 89 mg/dL (74-106); POTASSIUM - SERUM 3.6 mmol/L (3.5-5.1); PROTEIN - SERUM 6.3 g/dL (6.4-8.2); SODIUM 139 mmol/L (136-145); eGFR NON AFRICAN AMERICAN > 90 mL/min (90-120)
[2019-03-26 04:56] LABS: UREA NITROGEN 4 mg/dL (7-18)
--- NOTE | 2019-03-26 06:45 | NUR ---
ROUND DONE WITH FAMILY AT BEDSIDE. DENIES NEEDS AT THIS TIME. ON 4L PER NC. RIGHT AC PIV SEEN WITH HEPARIN INFUSING AT 14 CC/HR AND LR INFUSING AT 125 CC/HR TO LEFT HAND, ORANGE SWAB CAPS IN USE. CALL LIGHT AT SIDE, WILL CPOC.
[2019-03-26 07:28] VITALS: BP 113/69
--- NOTE | 2019-03-26 09:25 | NUR ---
DR ALCAZAR IN TO SEE PATIENT. TENTATIVE SURGERY FOR WEDNESDAY.
[2019-03-26 11:12] VITALS: BP 122/79
--- NOTE | 2019-03-26 12:05 | NUR ---
HEPARIN DRIP STOPPED ORDERED. ASSISTED PLACING PATIENT IN CHAIR FOR LUNCH.
--- NOTE | 2019-03-26 12:49 | NUR ---
STILL UP IN CHAIR VISITING WITH FRIENDS. WILL TAKE BATH AND LINEN CHANGE WHEN READY.
--- NOTE | 2019-03-26 14:22 | NUR ---
ASSSITED BACK TO BED, FAMILY AT BEDSIDE. WILL WAIT ON BATH UNTIL THEY LEAVE SHE STATES. LINEN CHANGED.
[2019-03-26 15:37] VITALS: BP 110/72
--- NOTE | 2019-03-26 17:33 | NUR ---
RESTING WITH EYES CLOSED, RESP ARE EVEN. ON 4L PER NC. FAMILY AT BEDSIDE.
--- NOTE | 2019-03-26 19:11 | NUR ---
PATIENT RESTING IN BED WITH GUESTS AT BEDSIDE AND REQUESTED A BREATHING TREATMENT WHEN RT DOES ROUNDS. PATIENT DENIES OTHER NEEDS AT THIS TIME. BED IN LOWEST POSITION AND CALL LIGHT WITHIN REACH. ENCOURAGED THE PATIENT TO CALL IF SHE HAS NEEDS. WILL CONTINUE TO MONITOR. CALLED RT [place]SANA TO NOTIFY OF BREATHING TREATMENT REQUEST.
[2019-03-27] VITALS: BP 93/51
[2019-03-27 04:47] VITALS: BP 94/53
[2019-03-27 06:58] LABS: BASOPHILS 0.7 % (0-2); EOSINOPHILS 10.9 % (0-7); HEMATOCRIT 37.3 % (36.0-48.0); HEMOGLOBIN 12.2 g/dL (12-16); IMMATURE GRANULOCYTES 0.2 % (0-5); LYMPHOCYTES 29.5 % (15-50); MCH 30.7 pg (26.0-34.0); MCHC 32.7 g/dL (31.0-37.0); MCV 93.7 fL (80.0-100.0); MEAN PLATELET VOLUME 9.5 fL (7.4-10.4); MONOCYTES 10.9 % (2-11); NEUTROPHILS 47.8 % (40-80); PLATELET COUNT 264 10x3/uL (130-400); RBC 3.98 10x6/uL (4.00-5.40); RDW 13.8 % (11.5-14.5)
--- NOTE | 2019-03-27 07:05 | NUR ---
ROUNDING DONE WITH PATIENT RESTING WITH EYES CLOSED, AT BEDSIDEIN CHAIR. LEFT HAND PIV SEEN WITH LR INFUSING AT 125 CC/HR, RIGHT AC PIV SALINE LOCK. ORANGE SWAB CAPS IN USE. ON 4L PER NC. APPEARS TO BE PAINFREE AT THIS TIME. WILL MONITOR.
[2019-03-27 07:06] LABS: ALBUMIN 2.7 g/dL (3.4-5.0); ALKALINE PHOSPHATASE 80 U/L (46-116); CALC OSMOLALITY 275 mosm/kg (275-300); CALCIUM 8.8 mg/dL (8.5-10.1); CARBON DIOXIDE 31.9 mmol/L (21.0-32.0); CHLORIDE - SERUM 104 mmol/L (98-107); CREATININE - SERUM 0.8 mg/dL (0.6-1.3); GLUCOSE 90 mg/dL (74-106); POTASSIUM - SERUM 3.7 mmol/L (3.5-5.1); PROTEIN - SERUM 6.4 g/dL (6.4-8.2); SODIUM 140 mmol/L (136-145); UREA NITROGEN 4 mg/dL (7-18); eGFR NON AFRICAN AMERICAN 83 mL/min (90-120)
[2019-03-27 07:12] LABS: ALT (SGPT) 53 U/L (10-68)
[2019-03-27 07:42] VITALS: BP 105/72
--- NOTE | 2019-03-27 08:53 | NUR ---
C/O MIGRAINE. WILL CALL DR ALCAZAR AND SEE IF WE CAN START HER ON HER MAXALT THAT SHE STATES SHE TAKES AT HOME.
--- NOTE | 2019-03-27 08:59 | MORECARE ---
CASE MANAGEMENT DISCHARGE SUMMARY PATIENT: MARY KAY YAP UNIT: [id number] ADM DATE: 03/24/19 AGE: 44 : [birth year] SEX: F ROOM/BED: D.1212 AUTHOR: ADRIANNA OSBORNE PHYSICIAN: REFERRING PHYSICIAN: TAY ALCAZAR MD DATE OF SERVICE: 03/27/19 Discharge Plan Patient Name: MARY KAY YAP Facility: [facility]:[place] : 1975 Planned Disposition: Home Anticipated Discharge Date: Discharge Date: Expected LOS: Initial Reviewer: [email or web address] Initial Review Date: 03/27/2019 Generated: 03/27/19 9:59 am Patient Name: MARY KAY YAP Page 49024 at 0859 All edits/amendments must be made on the electronic document DICTATION DATE: 03/27/19 0858 FINGER GRIP MACHINE OPERATOR: JOE 03/27/19 0858 RPT#: [id number] DC DATE: STATUS: ADM IN [facility] [address] [place] [address] END OF REPORT
--- NOTE | 2019-03-27 09:01 | NUR ---
0859-I HAD TO LEAVE A VOICE MAIL WITH ARUN AT DR ALCAZAR'S OFFICE.
--- NOTE | 2019-03-27 09:52 | NUR ---
PATIENT WITH EMESIS, ZOFRAN GIVEN. CALL PLACED TO ARUN AT DR ALCAZAR OFFICE AGAIN. LEFT MESSAGE AGAIN.
--- NOTE | 2019-03-27 09:54 | MORECARE ---
CASE MANAGEMENT DISCHARGE SUMMARY PATIENT: MARY KAY YAP UNIT: [id number] ADM DATE: 03/24/19 AGE: 44 : 77 SEX: F ROOM/BED: D.1212 AUTHOR: ADRIANNA OSBORNE PHYSICIAN: REFERRING PHYSICIAN: TAY ALCAZAR MD DATE OF SERVICE: 03/27/19 Discharge Plan Patient Name: MARY KAY YAP Facility: [facility]:[place] : 1975 Planned Disposition: Home Anticipated Discharge Date: Discharge Date: Expected LOS: Initial Reviewer: [email or web address] Initial Review Date: 03/27/2019 Generated: 03/27/19 10:54 am Comments DCP- Discharge Planning Updated by JUAN: Charisma Del Angel on 03/27/19 8:[address] Patient Name: MARY KAY YAP Admission Status: ER Accout number: [id number] Admission Date: 03-24-2019 : 1975 Admission Diagnosis: Attending: TAY ALCAZAR Current LOS: 3 Anticipated DC Date: Planned Disposition: Home Primary Insurance: MEDICAID [place] Discharge Planning Comments: CM met with patient to complete initial dc planning assessment. CM educated patient on the CM role and verbal consent given by patient to complete assessment. CM verified patient's address, phone number, and emergency contact phone numbers. Patient lives at home with family and reports she is independent in her care. At discharge patient plans to return home and feels this is a safe discharge. CM discussed availability of home health, rehab services, and medical equipment. Patient denied known discharge needs at this time.. CM will continue to follow and will assist as needed with dc plans/needs. Supervisor Pipeline Maintenance: Charisma Del Angel Last DP export: 03/27/19 7:59 am Patient Name: MARY KAY YAP Page [phone] at 0954 All edits/amendments must be made on the electronic document DICTATION DATE: 03/27/19953 STAMP PRESS OPERATOR: JOE 03/27/19953 RPT#: [id number] DC DATE: STATUS: ADM IN [facility] [address] [place] [address] END OF REPORT
[2019-03-27 11:39] VITALS: BP 104/66
--- NOTE | 2019-03-27 12:12 | NUR ---
RESTING WITH EYES CLOSED. I STILL HAVE NOT HEARD BACK FROM ARUN AT DR ALCAZAR OFFICE.
--- NOTE | 2019-03-27 12:19 | NUR ---
DR ALCAZAR IN TO SEE PATIENT. FOR SURGERY IN AM AT 0730.
--- NOTE | 2019-03-27 12:56 | NUR ---
DR ALCAZAR TO HAVE ME ORDER HER MAXALT. PER HER , SHE TAKES 40 MG TABS. THIS DOES NOT COME IN A 40 MG TAB. I CALLED [facility] ON [address] TO CLARIFY THIS. ORI, [employer] FLATBED DRIVER TO SEND ME INFO ON FAX MACHINE OF CORRECT MEDICATION THEN I CAN ORDER THIS.
--- NOTE | 2019-03-27 15:21 | NUR ---
PATIENT HAD A PARTIAL HYST APPROX 8 WEEKS AGO. AND A PREGNACY URINE HAS BEEN ORDERED. I DO NOT THINK PATIENT CAN BE BUT WILL ASK FOR A URINE ANYWAY.
[2019-03-27 16:01] VITALS: BP 101/60
--- NOTE | 2019-03-27 18:44 | NUR ---
[facility] PLACED IN HEALTH SYSTEM SO THAT URINE SAMPLE CAN BE OBTAINED.
--- NOTE | 2019-03-27 19:52 | NUR ---
PT IN BED AT THIS TIME. AT BEDSIDE. PT DENIES NEEDS.
[2019-03-27 20:00] VITALS: BP 107/68
[2019-03-27 21:51] LABS: HCG URINE NEGATIVE (NEGATIVE)
[2019-03-28] VITALS (7 sets, daily range): BP systolic 99–141; BP diastolic 58–68; Ht 180.3 cm; Wt 77.1 kg
--- NOTE | 2019-03-28 07:00 | NUR ---
PT TRANSPORTED TO SURGERY VIA BED
[2019-03-28 07:26] LABS: BASOPHILS 0.9 % (0-2); EOSINOPHILS 10.8 % (0-7); HEMATOCRIT 36.6 % (36.0-48.0); HEMOGLOBIN 12.2 g/dL (12-16); IMMATURE GRANULOCYTES 0.2 % (0-5); LYMPHOCYTES 26.8 % (15-50); MCH 31.1 pg (26.0-34.0); MCHC 33.3 g/dL (31.0-37.0); MCV 93.4 fL (80.0-100.0); MEAN PLATELET VOLUME 9.3 fL (7.4-10.4); MONOCYTES 13.5 % (2-11); NEUTROPHILS 47.8 % (40-80); PLATELET COUNT 239 10x3/uL (130-400); RBC 3.92 10x6/uL (4.00-5.40); RDW 13.9 % (11.5-14.5); WBC 4.5 10x3/uL (4.8-10.8)
[2019-03-28 07:42] LABS: ALBUMIN 2.7 g/dL (3.4-5.0); ALKALINE PHOSPHATASE 79 U/L (46-116); ALT (SGPT) 70 U/L (10-68); BILIRUBIN - TOTAL 0.22 mg/dL (0.2-1.3); CALC OSMOLALITY 272 mosm/kg (275-300); CALCIUM 8.9 mg/dL (8.5-10.1); CARBON DIOXIDE 27.2 mmol/L (21.0-32.0); CHLORIDE - SERUM 105 mmol/L (98-107); CREATININE - SERUM 0.7 mg/dL (0.6-1.3); GLUCOSE 95 mg/dL (74-106); POTASSIUM - SERUM 3.8 mmol/L (3.5-5.1); PROTEIN - SERUM 6.4 g/dL (6.4-8.2); SODIUM 138 mmol/L (136-145); UREA NITROGEN 4 mg/dL (7-18); eGFR NON AFRICAN AMERICAN > 90 mL/min (90-120)
--- NOTE | 2019-03-28 09:45 | NUR ---
RECIEVED PT FROM SURGERY VIA BED. O2 SAT 90-94% ON 4L. RECOVERY NURSE STATED DUONEB TX 15 MIN PRIOR. Q [address]. PT STATES 8/10 INCISIONAL PAIN. WILL RECIEVE PAIN MEDICATION ORDERED. AXO. OTHERWISE NO DISTRESS NOTED. RR EVEN AND UNLABORED. 3 DRESSINGS NOTED TO ABDOMEN CDI. FAMILY @ BEDSIDE.
--- NOTE | 2019-03-28 13:25 | NUR ---
I have reviewed this patient and I concur with the Shift Assessment completed by the Licensed Practical Nurse today this shift.
--- NOTE | 2019-03-28 19:51 | NUR ---
RECEIVED PATIENT. SITTING UP IN BED EATING FAMILY PRESENT AT BEDSIDE. PUT ON SCDs PER ORDER. BREATHING EVEN AND UNLABORED. NO VOICED C/O OR CONCERNS AT THIS TIME. NO NEEDS EXPRESSED.
[2019-03-29 00:55] VITALS: BP 112/55
--- NOTE | 2019-03-29 01:11 | NUR ---
RESTING IN BED. BREATHING EVEN AND UNLABORED. NO NEEDS EXPRESSED AT THIS TIME. WILL CPOC.
[2019-03-29 04:33] VITALS: BP 111/59
--- NOTE | 2019-03-29 05:01 | NUR ---
PATIENT IN BED. SPOUSE AT BEDSIDE. RESPIRATIONS EVEN AND UNLABORED. SCDs ON. REMINDED HER TO KEEP O2 ON. CHANGED DRESSING ON UMBILICAL AREA BECAUSE PATIENT HAD TAKEN IT OFF. NO S/S OF INFECTION NOTED. STITCHS INTACT. PROVIDED PAIN MEDICATION. NO FURTHER NEEDS EXPRESSED AT THIS TIME.
[2019-03-29 06:05] LABS: HEMATOCRIT 35.7 % (36.0-48.0); HEMOGLOBIN 11.7 g/dL (12-16); MCHC 32.8 g/dL (31.0-37.0); MCV 94.7 fL (80.0-100.0); MEAN PLATELET VOLUME 9.4 fL (7.4-10.4); RBC 3.77 10x6/uL (4.00-5.40); RDW 14.1 % (11.5-14.5)
[2019-03-29 06:23] LABS: WBC 6.5 10x3/uL (4.8-10.8)
--- NOTE | 2019-03-29 07:15 | NUR ---
PT SITTING UP IN BED. RR EVEN AND UNLABORED. STATES PAIN IN INCISION SITES 7/10. WILL GIVE DILAUDED ORDERED. OTHERWISE NO DISTRESS NOTED. WILL CONTINUE TO MONITOR.
[2019-03-29 09:16] VITALS: BP 118/72
[2019-03-29 17:50] VITALS: BP 122/76
[2019-03-29 20:00] VITALS: BP 114/76
--- NOTE | 2019-03-29 20:00 | NUR ---
RECEIVED PATIENT. IN BED. REMINDED PATIENT TO PUT ON NC. RR EVEN AND UNLABORED. NO S/S OF DISTRESS NOTED. DENIES NEEDS AT THIS TIME. WILL CPOC
[2019-03-30] VITALS: BP 104/59
--- NOTE | 2019-03-30 01:00 | NUR ---
RESTING QUIETLY IN BED. RR EVEN AND UNLABORED. NOT EXPRESSING PAIN AT THIS TIME. SCDs ON. NO S/S OF DISCOMFORT NOTED. WILL CPOC.
[2019-03-30 04:00] VITALS: BP 96/55
--- NOTE | 2019-03-30 07:45 | NUR ---
RECEIVED REPORT. LYING IN BED EYES CLOSED RESTING. AT BEDSIDE ASLEEP. CONTINUES ON 3.5L VIA NC. NO SIGNS OF DISTRESS NOTED. CALL LIGHT WITHIN REACH, FALL PRECAUTIONS IN PLACE. WILL CONTINUE TO MONITOR
[2019-03-30 08:15] VITALS: BP 112/70
[2019-03-30 08:53] LABS: HEMATOCRIT 36.9 % (36.0-48.0); MCH 31.1 pg (26.0-34.0); MCHC 32.5 g/dL (31.0-37.0); MCV 95.6 fL (80.0-100.0); MEAN PLATELET VOLUME 9.7 fL (7.4-10.4); RBC 3.86 10x6/uL (4.00-5.40); RDW 14.2 % (11.5-14.5); WBC 5.6 10x3/uL (4.8-10.8)
[2019-03-30] MEDS ORDERED: BUTALB-APAP-CA1 EACH PO ×2 (11:48→11:51)
[2019-03-30] MEDS ORDERED: ZITHROMAX250 MG PO ×2 (11:49→11:53)
[2019-03-30] MEDS ORDERED: DILAUDID2 MG PO ×2 (11:50→11:52)
--- NOTE | 2019-03-30 12:00 | NUR ---
REVIEWED DISCHARGE INSTRUCTIONS AND MEDICATIONS WITH PT AND PT . NO CONCERNS VOICED. HARD SCRIPTS GIVEN TO PATIENT FOR DILAUDID, FIORCET, ZITHROMAX. PT DISCHARGED IN STABLE CONDITION.
--- NOTE | 2019-03-30 12:05 | NUR ---
LEFT WRIST DC WITH IV CATH TIP INTACT. HELD PRESSURE UNTIL BLEEDING STOPPED. BANDAID APPLIED OVER PUNTURE SITE PER PT REQUEST. PT TOLERATED WELL
--- NOTE | 2019-03-31 11:37 | MORECARE ---
CASE MANAGEMENT DISCHARGE SUMMARY PATIENT: MARY KAY YAP UNIT: [id number] ADM DATE: 03/24/19 AGE: 44 : [birth year] SEX: F ROOM/BED: D.1212 AUTHOR: ADRIANNA OSBORNE PHYSICIAN: REFERRING PHYSICIAN: TAY ALCAZAR MD DATE OF SERVICE: 03/31/19 Discharge Plan Patient Name: MARY KAY YAP Facility: [facility]:[place] : 1975 Planned Disposition: Home Anticipated Discharge Date: Discharge Date: 03/30/2019 Expected LOS: Initial Reviewer: [email or web address] Initial Review Date: 03/27/2019 Generated: 03/31/19 12:36 pm DCP- Discharge Planning Updated by JUAN: Charisma Del Angel on 03/27/19 8:[address] Patient Name: MARY KAY YAP Admission Status: ER Accout number: [id number] Admission Date: 03-24-2019 : 1975 Admission Diagnosis: Attending: TAY ALCAZAR Current LOS: 3 Anticipated DC Date: Planned Disposition: Home Primary Insurance: MEDICAID [place] Discharge Planning Comments: CM met with patient to complete initial dc planning assessment. CM educated patient on the CM role and verbal consent given by patient to complete assessment. CM verified patient's address, phone number, and emergency contact phone numbers. Patient lives at home with family and reports she is independent in her care. At discharge patient plans to return home and feels this is a safe discharge. CM discussed availability of home health, rehab services, and medical equipment. Patient denied known discharge needs at this time.. CM will continue to follow and will assist as needed with dc plans/needs. Inventory Auditor: Charisma Del Angel Last DP export: 03/27/19 8:54 am Patient Name: MARY KAY YAP Page [id number] at 1137 All edits/amendments must be made on the electronic document DICTATION DATE: 03/31/19 1136 WANT AD SUPERVISOR: JOE 03/31/19 1136 RPT#: [id number] DC DATE:03/30/19 STATUS: DIS IN [place] [id number] [place] [address] END OF REPORT
== END 2019-03-30 12:52 | disposition home or self-care (01) | DRG 742 ==
LOC: D.ER 12:53 → D.M3 16:22 → OBSVTIME 16:22 → D.WS 16:22 → D.M3 16:30
PROVIDERS: Anesthesiology; Emergency Medicine; Family Medicine; Internal Medicine Hematology & Oncology; ADMIT Obstetrics & Gynecology; ATTEND Obstetrics & Gynecology
PROC: 0UB14ZZ Excision of Left Ovary, Percutaneous Endoscopic Approach (ICD-10-PCS; principal; 2019-03-28 07:30)
DX: N94.89 Other specified conditions associated with female genital organs and menstrual cycle (principal); J18.9 Pneumonia, unspecified organism; Z79.01 Long term (current) use of anticoagulants; F32.9 Major depressive disorder, single episode, unspecified; Z86.711 Personal history of pulmonary embolism; Z86.73 Personal history of transient ischemic attack (TIA), and cerebral infarction without residual deficits; Z87.891 Personal history of nicotine dependence

== ENCOUNTER → 2019-07-31 18:35 | Outpatient (CLI) | payer MEDICAID ==
[2019-03-28 15:00] VITALS: BMI 23.7
[~2019-07-31 18:35] MED LIST changes: +ATIVAN0.5 MG; +BUTALB-APAP-CA1 EACH PO; +DILAUDID2 MG PO; +PHENERGAN25 M1 PO; +ZITHROMAX250 MG PO
== END | disposition home or self-care (01) ==
LOC: D.LABREF 18:35
PROVIDERS: ATTEND Urology
DX: R82.90 Unspecified abnormal findings in urine (principal)

== ENCOUNTER → 2019-08-14 10:17 | Outpatient (CLI) | payer MEDICAID ==
[2019-03-28 15:00] VITALS: BMI 23.7
== END | disposition home or self-care (01) ==
LOC: D.CT 10:17
PROVIDERS: ATTEND Urology
DX: R10.2 Pelvic and perineal pain (principal)